=== PATIENT | male | born 1995 | race Caucasian/White ===

== ENCOUNTER 2017-04-16 15:14 | Inpatient (IN) | payer BC, MEDICAID ==
[2017-04-16] MEDS ORDERED: LORazepam 1 MG TAB PO STA (18:14)
[2017-04-16] MEDS ORDERED: LORazepam 2 MG/ML INJ IM STA (18:16)
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
[2017-04-16] MEDS ORDERED: ZIPRASIDONE 20 MG VIAL IM STA (19:07)
[2017-04-16] MEDS ORDERED: MAGNESIUM HYDROXIDE 2,400 MG/10 ML CUP PO PRN (21:31)
[2017-04-16] MEDS ORDERED: ACETAMINOPHEN TAB 325 MG TAB PO PRN (21:31)
[2017-04-16] MEDS ORDERED: MAG HYDROX/AL HYDROX/SIMETH 30 ML CUP PO PRN (21:31)
[2017-04-16] MEDS ORDERED: ZIPRASIDONE 20 MG VIAL IM PRN (21:31)
[2017-04-16] MEDS ORDERED: LORazepam 1 MG TAB PO PRN (21:31)
[2017-04-16] MEDS: levETIRAcetam 500 MG TAB PO SCH (22:14)
[2017-04-17] MEDS: levETIRAcetam 500 MG TAB PO SCH ×2 (09:34→20:10)
[2017-04-17 10:34] LABS: Basophils % (A) 1 %; Eosinophils # (A) 0.3 k/uL (0-0.7); Eosinophils % (A) 4 %; HCT 46.5 % (39.0-53.0); HGB 15.2 gm/dL (13.0-17.5); Lymphocytes % (A) 29 %; MCH 30.5 pg (25.0-35.0); MCHC 32.7 g/dL (31.0-37.0); MCV 93.5 fL (80.0-100.0); Mean Platelet Volume 7.8; Monocytes # (A) 0.4 k/uL (0-1.0); Monocytes % (A) 6 %; Neutrophils % (A) 59 %; Platelet Count 258 k/uL (150-450); RBC 4.97 m/uL (4.30-5.90); RDW 12.2 % (11.5-15.5); WBC 6.8 k/uL (4.0-11.0)
[2017-04-17 10:51] LABS: ALT 32 U/L (21-72); AST 33 U/L (17-59); Albumin 5.1 g/dL (3.5-5.0); Alkaline Phosphatase 60 U/L (38-126); Anion Gap 10 mmol/L; Blood Urea Nitrogen 13 mg/dL (9-20); Calcium 10.8 mg/dL (8.4-10.2); Carbon Dioxide 34 mmol/L (22-30); Chloride 96 mmol/L (98-107); Glucose 106 mg/dL (74-99); Potassium 4.9 mmol/L (3.5-5.1); Sodium 140 mmol/L (137-145); Total Bilirubin 0.9 mg/dL (0.2-1.3); Total Protein 8.1 g/dL (6.3-8.2)
--- NOTE | 2017-04-17 11:37 | CT ---
EXAMINATION TYPE: CT brain wo con DATE OF EXAM: 04/17/2017 COMPARISON: NONE HISTORY: Seizures with ICH CT DLP: 1039.30 mGycm Automated exposure control for dose reduction was used. FINDINGS: There is an area of encephalomalacia involving the right frontal region. This may BE due to previous vascular insult. Central structures are midline. There is no evidence of hydrocephalus. No acute focal lesion, mass ef fect or midline shift is seen. I do not see evidence of intracranial blood. Visualized portions of the paranasal sinuses and mastoids are clear. No depressed skull fracture is s een. IMPRESSION: 1. NO ACUTE INTRACRANIAL ABNORMALITY. 2. CATHETER OR MALACIA IN THE RIGHT FRONTAL LOBE IS INDICATIVE OF PREVIOUS INSULT, LIKELY VASCULAR.
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
[2017-04-17] MEDS ORDERED: OLANZapine 5 MG TAB PO STA (13:27)
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
[2017-04-17] MEDS: OLANZapine 5 MG TAB PO SCH ×2 (16:32→20:10)
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
[2017-04-17] MEDS: cloNIDine HCL 0.1 MG TAB PO SCH (20:10)
[2017-04-17 21:01] VITALS: BMI 17.8
[2017-04-18 02:13] VITALS: RESP 16
[2017-04-18] MEDS: levETIRAcetam 500 MG TAB PO SCH ×2 (09:05→20:43)
[2017-04-18] MEDS: cloNIDine HCL 0.1 MG TAB PO SCH ×2 (09:06→20:43)
[2017-04-18] MEDS: OLANZapine 5 MG TAB PO SCH ×2 (09:06→16:13)
[2017-04-18] MEDS: NICOTINE 21MG/24HR PATCH TRANSDERM SCH (09:08)
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
--- NOTE | 2017-04-18 18:48 | P.PN ---
Subjective Progress Note Date: 04/18/17 This patient is a 21-year-old male who was brought into the emergency room with symptoms of worsening anxiety and panic attacks. He has a history of having suffered a intracerebral hemorrhage several months ago. He was treated for this condition by neurosurgery at [facility]. He was placed on Keppra initially for 21 days. He weaned off the medication however he had a breakthrough seizure. He was placed back on Keppra 1000 mg twice a day. The patient was admitted through the emergency room yesterday. He was seen in neurology consultation. A computed tomography scan of the brain was ordered which revealed no acute intracranial abnormality. There was some encephalomalacia noted over the right frontal lobe indicating previous insult. No other abnormalities were noted. Patient today is doing quite well. We're waiting his Keppra blood level to return from the laboratory. He is to continue on current dose of Keppra thousand milligrams twice a day. EEG was ordered but was not completed today. We will continue to follow his progress closely during this admission. Objective - Vital Signs Vital signs: Vital Signs Temp 98.3 F 04/18/17 02:12 Pulse 140 H 04/18/17 09:00 Resp 16 04/18/17 09:00 BP 123/76 04/18/17 09:00 Pulse Ox 99 04/16/17 22:06 Intake & Output 04/17/17 04/18/17 04/18/17 18:59 06:59 18:59 Weight 52.3 kg 53.24 kg 53.24 kg - Exam Physical examination: PHYSICAL EXAMINATION: Patient is resting comfortably in bed. VITAL SIGNS: Blood pressure is [123/76]. Heart rate is [90]. Respiration is [16] . Temperature is [98.3]. HEENT: Head is atraumatic, neck is supple, there were no carotid bruits. CHEST: Lungs are clear to auscultation and percussion. CARDIAC: S1, S2 normal rate and rhythm. There is no murmur. ABDOMEN: Soft and nontender. Bowel sounds are present. EXTREMITIES: There is no pedal edema. Peripheral pulses are present. Neurological examination: Patient has a nonfocal neurological examination today. - Labs CBC & Chem 7: 04/17/17 10:06 04/17/17 10:06 Assessment and Plan (1) Seizure disorder Current Visit: Yes Status: Acute Code(s): G40.909 - EPILEPSY, UNSP, NOT INTRACTABLE, WITHOUT STATUS EPILEPTICUS SNOMED Code(s): 790159623 (2) History of intracerebral hemorrhage without residual deficit Current Visit: Yes Status: Acute Code(s): Z86.79 - PERSONAL HISTORY OF OTHER DISEASES OF THE CIRCULATORY SYSTEM SNOMED Code(s): 368473245 (3) Anxiety Current Visit: Yes Status: Acute Code(s): F41.9 - ANXIETY DISORDER, UNSPECIFIED SNOMED Code(s): 22890149 (4) Panic attacks Current Visit: Yes Status: Acute Code(s): F41.0 - PANIC DISORDER [EPISODIC PAROXYSMAL ANXIETY] SNOMED Code(s): 274588324 Plan: This patient is a 21-year-old male who is being followed in the inpatient psychiatric unit for history of seizure disorder and closed head injury. Patient is currently on Keppra thousand milligrams twice a day. He underwent a computed tomography scan of the brain yesterday results which are noted above. There is no evidence of any acute stroke or hemorrhage. Patient has a history of having suffered intracerebral hemorrhage several months ago. He has had several seizures following this. We are recommending he should be maintained on Keppra at this time. We will await the Keppra blood level to return from the laboratory and adjust his medication as needed. We are waiting for EEG to be performed for this patient and to be reviewed. We will continue to follow his progress closely during this admission. His overall prognosis at this time remains guarded.
[2017-04-18] MEDS: OLANZapine 2.5 MG TAB PO SCH (21:07)
[2017-04-19] MEDS: cloNIDine HCL 0.1 MG TAB PO SCH (09:08)
[2017-04-19] MEDS: levETIRAcetam 500 MG TAB PO SCH ×2 (09:08→20:08)
[2017-04-19] MEDS: NICOTINE 21MG/24HR PATCH TRANSDERM SCH (09:08)
[2017-04-19] MEDS: OLANZapine 2.5 MG TAB PO SCH (09:08)
--- NOTE | 2017-04-19 10:26 | P.PN ---
Progress Note - Text Interval history: The patient is found in his room he follows me to an interview room. He reports that he was able to sleep last night and appetite been stable. He states that he usually misses the morning groups as he is still sleeping. He reports attending the afternoon groups. He has been giving his placement options more thought and he wonders if he would be better staying with his grandmother versus his grandfather. We reviewed the Zyprexa he has no questions or concerns regarding that medication he is focused on having symptoms of anxiety still and feels that panic attacks will cause him to have seizures. Neurology is closely following the patient he has been getting serial Keppra levels that have been within the therapeutic range. The patient still disagrees with the necessity of this admission. He feels that his mother lied about information on the petition. Mental status exam: The patient is a thin male. He is pleasant and cooperative. He has a disheveled appearance. He frequently moves while seated and often adjusts his hair. He reports his mood is stable. He has not felt angry or irritable he reports. He is reporting no suicidal or homicidal ideation. Again he is motivated for discharge and may be minimizing symptoms. He is reporting no auditory or visual hallucinations or specific delusions. There is no observed evidence of psychosis. He demonstrates no verbal or physical aggressiveness he demonstrates no abnormal involuntary movements. Plan: The patient will continue on his current medications. We will discontinue the clonidine and offer Vistaril 25 mg up to twice daily for anxiety. He is requesting to go back on a benzodiazepine but given his history of substance use that does not appear to be in his best interest. We will monitor him for safety and encourage his full participation in the milieu. We will discuss his progress throughout the day during treatment team meeting.
[2017-04-19] MEDS: OLANZapine 5 MG TAB PO SCH ×2 (16:52→21:08)
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
[2017-04-19] MEDS: hydrOXYzine PAMOATE 25 MG CAP PO PRN (20:08)
[2017-04-20] MEDS: NICOTINE 21MG/24HR PATCH TRANSDERM SCH (08:39)
[2017-04-20] MEDS: OLANZapine 5 MG TAB PO SCH ×3 (08:39→21:10)
[2017-04-20] MEDS: levETIRAcetam 500 MG TAB PO SCH ×2 (08:40→20:16)
--- NOTE | 2017-04-20 11:32 | P.PN ---
Progress Note - Text Interval history: The patient is found in his room he follows me to an interview room. He reports his mood is stable. He does have a visit planned with his grandmother this evening. We will look forward to input from his grandmother after the visit. Staff reported the patient has been attending groups he is demonstrated no agitated behavior. He continues to find the Zyprexa helpful for mood symptoms. Mental status exam: The patient is alert he is pleasant and cooperative he has recently showered. He is dressed in his own clothing. He is reporting no suicidal or homicidal ideation intent or plan. He feels that he has been able to mitigate his irritable feelings and redirect those. Insight and judgment improving. He is endorsing no symptoms of psychosis there are no observable signs of psychosis. He demonstrates no verbal or physical aggressiveness. He and demonstrates no abnormal involuntary movements. Plan: The patient appears to be clinically stabilizing. We will continue his medications as written. We will evaluate him for another 24 hours and if he is appropriate we will discharge him tomorrow. We will await input from his grandmother after their visit this evening.
[2017-04-20 16:14] LABS: Appearance,Urine Clear (Clear); Bilirubin,Urine Negative (Negative); Blood,Urine Negative (Negative); Color,Urine Yellow; Glucose,Urine (UA) Negative (Negative); Ketones,Urine Negative (Negative); Leukocyte Esterase,Urine Negative (Negative); Nitrite,Urine Negative (Negative); Protein,Urine Negative (Negative); Specific Gravity,Urine 1.016 (1.001-1.035); Urobilinogen,Urine <2.0 mg/dL (<2.0)
[2017-04-20 16:27] LABS: Amphetamine Screen,Urine Not Detected (NotDetected); Barbiturate Screen,Urine Not Detected (NotDetected); Benzodiazepines Screen,Urine Not Detected (NotDetected); Cocaine Screen,Urine Not Detected (NotDetected); Methadone Screen, Urine Not Detected (NotDetected); Opiate Screen,Urine Not Detected (NotDetected); Oxycodone Screen, Urine Not Detected (NotDetected); Phencyclidine Screen,Urine Not Detected (NotDetected); Tricyclic Antidepressant,Urine Not Detected (NotDetected); Urn Cannabinoid Scrn Detected (NotDetected)
[2017-04-20] MEDS: hydrOXYzine PAMOATE 25 MG CAP PO PRN (20:18)
[2017-04-21 07:02] VITALS: BP 99/65; PULSE 58; TEMP 97.7
[2017-04-21] MEDS: levETIRAcetam 500 MG TAB PO SCH (07:51)
[2017-04-21] MEDS: NICOTINE 21MG/24HR PATCH TRANSDERM SCH (07:52)
[2017-04-21] MEDS: OLANZapine 5 MG TAB PO SCH (07:52)
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
== END 2017-04-21 10:54 | disposition home or self-care (01) | DRG 881 ==
LOC: EC 15:14 → 3MHU 20:36
PROVIDERS: ADMIT Psychiatry & Neurology Psychiatry; ATTEND Psychiatry & Neurology Psychiatry
DX: F32.9 Major depressive disorder, single episode, unspecified (principal); F11.20 Opioid dependence, uncomplicated; G93.89 Other specified disorders of brain; G40.409 Other generalized epilepsy and epileptic syndromes, not intractable, without status epilepticus; F31.9 Bipolar disorder, unspecified; F41.0 Panic disorder [episodic paroxysmal anxiety]; B19.20 Unspecified viral hepatitis C without hepatic coma; R45.1 Restlessness and agitation; F17.210 Nicotine dependence, cigarettes, uncomplicated; F12.10 Cannabis abuse, uncomplicated; Z79.899 Other long term (current) drug therapy; Z87.820 Personal history of traumatic brain injury; Z91.5 Personal history of self-harm
CPT/HCPCS: 70450; 80053; 80177; 80306; 81003; 82075; 84443; 85025; 95816; 96372; 99285

== ENCOUNTER 2017-07-30 05:54 | Emergency (ER) | payer BC, OTHER ==
--- NOTE | 2017-07-30 06:30 | ED ---
Lower Extremity Injury HPI - General Chief Complaint: Extremity Injury, Lower Stated Complaint: knee pain Time Seen by Provider: 07/30/17 06:24 Source: patient Mode of arrival: ambulatory Limitations: no limitations - History of Present Illness Initial Comments: 21 years old male complains about left kidney pain, he said he has this pain for a long time and is getting worse he denies any fall or any trauma any car accident or any sporting injury. Review of system is unremarkable otherwise - Related Data Home Medications Medication Instructions Recorded Confirmed levETIRAcetam [Keppra] 1,000 mg PO Q12HR 04/16/17 04/16/17 Previous Rx's Medication Instructions Recorded Nicotine 21Mg/24Hr Patch [Habitrol] 1 patch TRANSDERM DAILY #12 patch 04/21/17 OLANZapine [ZyPREXA] 5 mg PO TID #90 tab 04/21/17 hydrOXYzine PAMOATE [Vistaril] 25 mg PO BID PRN #40 cap 04/21/17 Allergies Allergy/AdvReac Type Severity Reaction Status Date / Time No Known Allergies Allergy Verified 07/30/17 06:15 Review of Systems ROS Statement: Those systems with pertinent positive or pertinent negative responses have been documented in the HPI. ROS Other: All systems not noted in ROS Statement are negative. Past Medical History Past Medical History: Seizure Disorder Additional Past Medical History / Comment(s): Hepatitis C-- Dx five years ago. 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 Seizure - last was 04/16/17. History of Any Multi-Drug Resistant Organisms: None Reported Past Surgical History: Orthopedic Surgery, Tonsillectomy Additional Past Surgical History / Comment(s): Patient had right side jaw repair with a plate. Left arm repair due to a compound fracture in Past Anesthesia/Blood Transfusion Reactions: No Reported Reaction Past Psychological History: Anxiety, Bipolar, Depression Smoking Status: Current every day smoker Past Alcohol Use History: None Reported, Daily Past Drug Use History: Heroin - Past Family History Father Family Medical History: No Reported History Mother Additional Family Medical History / Comment(s): Depression, Bipolar, ADD/ADHD Sister(s) Family Medical History: No Reported History Brother(s) Family Medical History: No Reported History General Exam - General Exam Comments Initial Comments: General: The patient is awake and alert, in no distress, and does not appear acutely ill. Skin: Skin is warm and dry and no rashes or lesions are noted. Eye: Pupils are equal, round and reactive to light, extra-ocular movements are intact; there is normal conjunctiva bilaterally. Ears, nose, mouth and throat: There are moist mucous membranes and no oral lesions. Neck: The neck is supple, there is no tenderness or JVD. Cardiovascular: There is a regular rate and rhythm. No murmur, rub or gallop is appreciated. Respiratory: To auscultation bilateral, no wheezing no rhonchi no distress respiratory brand noticed Gastrointestinal: Soft, non-distended, non-tender abdomen without masses or organomegaly noted. There is no rebound or guarding present. Bowel sounds are unremarkable. Back: There is no tenderness to palpation in the midline. There is no obvious deformity. Musculoskeletal: Normal ROM, mildly tender over the face left kidney joint welling noticed, no erythema noticed no effusion noticed range of motion is fine no neurovascular compromise noticed of the left distal lower extremity Neurological: CN II-XII intact, Cranial nerves III through XII are intact. There are no obvious motor or sensory deficits. Coordination appears grossly intact. Speech is normal. Psychiatric: Cooperative, appropriate mood & affect, normal judgment. Limitations: no limitations Course Vital Signs 07/30/17 06:10 Temperature 97.6 F Pulse Rate 97 Respiratory 20 Rate Blood Pressure 112/81 O2 Sat by Pulse 98 Oximetry Disposition Clinical Impression: Knee sprain Disposition: HOME SELF-CARE Instructions: Knee Sprain (ED) Additional Instructions: Tylenol or Motrin as needed, x-ray reviewed no obvious fracture noticed patient is advised follow-up with Dr. Quevedo or return to ER if symptoms get worse Is patient prescribed a controlled substance at d/c from ED?: No If prescribed controlled substance>3 days was MAPS reviewed?: No When asked, does pt state using other controlled substances?: No Referrals: Chiqui Quevedo MD [Primary Care Provider] - 1-2 days
--- NOTE | 2017-07-30 07:23 | XR ---
EXAMINATION TYPE: XR knee 4V LT , 5 VIEWS DATE OF EXAM ORDERED: 07/30/2017 HISTORY: Pain. COMPARISON: None. FINDINGS: No fracture, dislocation or knee joint effusion is seen. IMPRESSION: NO ACUTE OSSEOUS LESION.
[2017-07-30 07:28] VITALS: RESP 18
[2017-07-30 11:02] VITALS: BP 104/62; PULSE 101; TEMP 97.1
== END 2017-07-30 10:58 | disposition home or self-care (01) ==
LOC: EC 05:54
DX: S83.92XA Sprain of unspecified site of left knee, initial encounter (principal); G40.909 Epilepsy, unspecified, not intractable, without status epilepticus; F17.200 Nicotine dependence, unspecified, uncomplicated; Z79.899 Other long term (current) drug therapy; X58.XXXA Exposure to other specified factors, initial encounter
CPT/HCPCS: 99283

== ENCOUNTER 2017-11-05 05:32 | Emergency (ER) | payer BC, MEDICAID, OTHER ==
[2017-11-05] MEDS ORDERED: SODIUM CHLORIDE 0.9% 500 ML IV STA (06:07)
[2017-11-05 06:22] LABS: Basophils % (A) 0 %; Eosinophils # (A) 0.1 k/uL (0-0.7); Eosinophils % (A) 2 %; HCT 36.4 % (39.0-53.0); HGB 11.9 gm/dL (13.0-17.5); Lymphocytes # (A) 1.6 k/uL (1.0-4.8); Lymphocytes % (A) 27 %; MCH 29.9 pg (25.0-35.0); MCHC 32.7 g/dL (31.0-37.0); MCV 91.4 fL (80.0-100.0); Mean Platelet Volume 7.8; Monocytes # (A) 0.3 k/uL (0-1.0); Monocytes % (A) 6 %; Neutrophils # (A) 3.9 k/uL (1.3-7.7); Neutrophils % (A) 64 %; Platelet Count 150 k/uL (150-450); RBC 3.98 m/uL (4.30-5.90); RDW 12.7 % (11.5-15.5)
[2017-11-05 06:33] LABS: ALT 27 U/L (21-72); AST 43 U/L (17-59); Acetaminophen <10.0 ug/mL; Albumin 4.1 g/dL (3.5-5.0); Alcohol <10 mg/dL; Alkaline Phosphatase 47 U/L (38-126); Anion Gap 8 mmol/L; Blood Urea Nitrogen 15 mg/dL (9-20); Calcium 9.3 mg/dL (8.4-10.2); Carbon Dioxide 28 mmol/L (22-30); Chloride 102 mmol/L (98-107); Glucose 138 mg/dL (74-99); Potassium 4.1 mmol/L (3.5-5.1); Salicylate <1.0 mg/dL; Sodium 138 mmol/L (137-145); Total Bilirubin 0.4 mg/dL (0.2-1.3); Total Protein 6.3 g/dL (6.3-8.2)
--- NOTE | 2017-11-05 06:40 | ED ---
Overdose HPI - General Chief Complaint: Overdose Stated Complaint: Overdose Time Seen by Provider: 11/05/17 05:38 Source: patient, EMS Mode of arrival: EMS Limitations: no limitations - History of Present Illness Initial Comments: Patient is 21-year-old man brought in after he had a seizure or possible heroin overdose. Patient does admit to history of seizures, taking Keppra. EMS was called to the scene of heroin overdose and was reported that the patient had a shaking episode. When I interview the patient, he states he is at his baseline area he denies any complaints. He states that his last seizure had been a few weeks ago. He states he may have missed doses of his medication. Complaint: accidental overdose Onset/Timin -: hour(s) Context: Accidental Overdose: wanted to get high - Related Data Home Medications Medication Instructions Recorded Confirmed levETIRAcetam [Keppra] 1,000 mg PO Q12HR 04/16/17 04/16/17 Previous Rx's Medication Instructions Recorded Nicotine 21Mg/24Hr Patch [Habitrol] 1 patch TRANSDERM DAILY #12 patch 04/21/17 OLANZapine [ZyPREXA] 5 mg PO TID #90 tab 04/21/17 hydrOXYzine PAMOATE [Vistaril] 25 mg PO BID PRN #40 cap 04/21/17 Allergies Allergy/AdvReac Type Severity Reaction Status Date / Time No Known Allergies Allergy Verified 07/30/17 06:15 Review of Systems ROS Statement: Those systems with pertinent positive or pertinent negative responses have been documented in the HPI. ROS Other: All systems not noted in ROS Statement are negative. Constitutional: Denies: fever, chills Respiratory: Denies: cough, dyspnea Cardiovascular: Denies: chest pain, palpitations Gastrointestinal: Denies: abdominal pain, vomiting, diarrhea Genitourinary: Denies: dysuria Musculoskeletal: Denies: back pain Skin: Denies: rash Neurological: Denies: headache, weakness, numbness Past Medical History Past Medical History: Seizure Disorder Additional Past Medical History / Comment(s): Hepatitis C-- Dx five years ago. 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 Seizure - last was 04/16/17. History of Any Multi-Drug Resistant Organisms: None Reported Past Surgical History: Orthopedic Surgery, Tonsillectomy Additional Past Surgical History / Comment(s): Patient had right side jaw repair with a plate. Left arm repair due to a compound fracture in Past Anesthesia/Blood Transfusion Reactions: No Reported Reaction Past Psychological History: Anxiety, Bipolar, Depression Smoking Status: Current every day smoker Past Alcohol Use History: Occasional Past Drug Use History: Heroin, Marijuana - Past Family History Father Family Medical History: No Reported History Mother Additional Family Medical History / Comment(s): Depression, Bipolar, ADD/ADHD Sister(s) Family Medical History: No Reported History Brother(s) Family Medical History: No Reported History General Exam Limitations: no limitations General appearance: alert, in no apparent distress Head exam: Present: atraumatic, normocephalic Eye exam: Present: normal appearance, PERRL, EOMI. Absent: scleral icterus, conjunctival injection, nystagmus ENT exam: Present: normal oropharynx Respiratory exam: Present: normal lung sounds bilaterally. Absent: respiratory distress, wheezes, rales, rhonchi, stridor Cardiovascular Exam: Present: regular rate, normal rhythm, normal heart sounds. Absent: systolic murmur, diastolic murmur, rubs, gallop GI/Abdominal exam: Present: soft. Absent: distended, tenderness, guarding Extremities exam: Present: normal inspection, normal capillary refill. Absent: pedal edema, calf tenderness Neurological exam: Present: alert, oriented X3, CN II-XII intact. Absent: motor sensory deficit Psychiatric exam: Absent: homicidal ideation, suicidal ideation Skin exam: Present: warm, dry, intact, normal color. Absent: rash Course Vital Signs 11/05/17 11/05/17 11/05/17 05:32 06:30 06:58 Temperature 98.7 F Pulse Rate 96 88 84 Respiratory 15 16 17 Rate Blood Pressure 129/67 122/63 114/70 O2 Sat by Pulse 96 99 98 Oximetry 11/05/17 11/05/17 11/05/17 07:22 08:44 09:41 Temperature 98.7 F Pulse Rate 78 69 64 Respiratory 15 15 16 Rate Blood Pressure 112/59 110/59 109/61 O2 Sat by Pulse 97 95 97 Oximetry 11/05/17 10:34 Temperature 97.8 F Pulse Rate 89 Respiratory 16 Rate Blood Pressure 118/70 O2 Sat by Pulse 99 Oximetry Medical Decision Making - Lab Data Result diagrams: 11/05/17 05:40 11/05/17 05:40 Lab Results 11/05/17 11/05/17 11/05/17 Range/Units 05:40 05:40 05:40 WBC 6.0 (4.0-11.0) k/uL RBC 3.98 L (4.30-5.90) m/uL Hgb 11.9 L (13.0-17.5) gm/dL Hct 36.4 L (39.0-53.0) % MCV 91.4 (80.0-100.0) fL MCH 29.9 (25.0-35.0) pg MCHC 32.7 (31.0-37.0) g/dL RDW 12.7 (11.5-15.5) % Plt Count 150 (150-450) k/uL Neutrophils % 64 % Lymphocytes % 27 % Monocytes % 6 % Eosinophils % 2 % Basophils % 0 % Neutrophils # 3.9 (1.3-7.7) k/uL Lymphocytes # 1.6 (1.0-4.8) k/uL Monocytes # 0.3 (0-1.0) k/uL Eosinophils # 0.1 (0-0.7) k/uL Basophils # 0.0 (0-0.2) k/uL Sodium 138 (137-145) mmol/L Potassium 4.1 (3.5-5.1) mmol/L Chloride 102 (98-107) mmol/L Carbon Dioxide 28 (22-30) mmol/L Anion Gap 8 mmol/L BUN 15 (9-20) mg/dL Creatinine 1.05 (0.66-1.25) mg/dL Est GFR (CKD-EPI)AfAm >90 (>60 ml/min/1.73 sqM) Est GFR (CKD-EPI)NonAf >90 (>60 ml/min/1.73 sqM) Glucose 138 H (74-99) mg/dL Calcium 9.3 (8.4-10.2) mg/dL Total Bilirubin 0.4 (0.2-1.3) mg/dL AST 43 (17-59) U/L ALT 27 (21-72) U/L Alkaline Phosphatase 47 (38-126) U/L Total Protein 6.3 (6.3-8.2) g/dL Albumin 4.1 (3.5-5.0) g/dL Salicylates <1.0 mg/dL Urine Opiates Screen (NotDetected) Ur Oxycodone Screen (NotDetected) Urine Methadone Screen (NotDetected) Ur Propoxyphene Screen (NotDetected) Acetaminophen <10.0 ug/mL Ur Barbiturates Screen (NotDetected) U Tricyclic Antidepress (NotDetected) Levetiracetam 28.6 (3.0-60.0) ug/mL Ur Phencyclidine Scrn (NotDetected) Ur Amphetamines Screen (NotDetected) U Methamphetamines Scrn (NotDetected) U Benzodiazepines Scrn (NotDetected) Urine Cocaine Screen (NotDetected) U Marijuana (THC) Screen (NotDetected) Serum Alcohol <10 mg/dL 11/05/17 Range/Units 07:03 WBC (4.0-11.0) k/uL RBC (4.30-5.90) m/uL Hgb (13.0-17.5) gm/dL Hct (39.0-53.0) % MCV (80.0-100.0) fL MCH (25.0-35.0) pg MCHC (31.0-37.0) g/dL RDW (11.5-15.5) % Plt Count (150-450) k/uL Neutrophils % % Lymphocytes % % Monocytes % % Eosinophils % % Basophils % % Neutrophils # (1.3-7.7) k/uL Lymphocytes # (1.0-4.8) k/uL Monocytes # (0-1.0) k/uL Eosinophils # (0-0.7) k/uL Basophils # (0-0.2) k/uL Sodium (137-145) mmol/L Potassium (3.5-5.1) mmol/L Chloride (98-107) mmol/L Carbon Dioxide (22-30) mmol/L Anion Gap mmol/L BUN (9-20) mg/dL Creatinine (0.66-1.25) mg/dL Est GFR (CKD-EPI)AfAm (>60 ml/min/1.73 sqM) Est GFR (CKD-EPI)NonAf (>60 ml/min/1.73 sqM) Glucose (74-99) mg/dL Calcium (8.4-10.2) mg/dL Total Bilirubin (0.2-1.3) mg/dL AST (17-59) U/L ALT (21-72) U/L Alkaline Phosphatase (38-126) U/L Total Protein (6.3-8.2) g/dL Albumin (3.5-5.0) g/dL Salicylates mg/dL Urine Opiates Screen Not Detected (NotDetected) Ur Oxycodone Screen Not Detected (NotDetected) Urine Methadone Screen Not Detected (NotDetected) Ur Propoxyphene Screen Not Detected (NotDetected) Acetaminophen ug/mL Ur Barbiturates Screen Not Detected (NotDetected) U Tricyclic Antidepress Not Detected (NotDetected) Levetiracetam (3.0-60.0) ug/mL Ur Phencyclidine Scrn Not Detected (NotDetected) Ur Amphetamines Screen Not Detected (NotDetected) U Methamphetamines Scrn Not Detected (NotDetected) U Benzodiazepines Scrn Detected H (NotDetected) Urine Cocaine Screen Detected H (NotDetected) U Marijuana (THC) Screen Detected H (NotDetected) Serum Alcohol mg/dL - EKG Data -: EKG Interpreted by [facility] EKG shows normal: sinus rhythm, axis (Rightward axis), intervals (Normal), QRS complexes (Normal), ST-T waves (Normal) Rate: normal (Rate 99 bpm) Disposition Clinical Impression: Drug overdose Disposition: HOME SELF-CARE Condition: Good Instructions: Opioid Overdose (ED) Is patient prescribed a controlled substance at d/c from ED?: No Referrals: None,Stated [Primary Care Provider] - 1-2 days
[2017-11-05 07:40] LABS: Amphetamine Screen,Urine Not Detected (NotDetected); Barbiturate Screen,Urine Not Detected (NotDetected); Benzodiazepines Screen,Urine Detected (NotDetected); Cocaine Screen,Urine Detected (NotDetected); Methadone Screen, Urine Not Detected (NotDetected); Opiate Screen,Urine Not Detected (NotDetected); Oxycodone Screen, Urine Not Detected (NotDetected); Phencyclidine Screen,Urine Not Detected (NotDetected); Tricyclic Antidepressant,Urine Not Detected (NotDetected); Urn Cannabinoid Scrn Detected (NotDetected)
[2017-11-05 09:42] VITALS: RESP 16
[2017-11-05 10:35] VITALS: BP 118/70; PULSE 89; TEMP 97.8
== END 2017-11-05 10:47 | disposition home or self-care (01) ==
LOC: EC 05:32
DX: T40.1X1A Poisoning by heroin, accidental (unintentional), initial encounter (principal); G40.909 Epilepsy, unspecified, not intractable, without status epilepticus; Z98.890 Other specified postprocedural states; Z79.899 Other long term (current) drug therapy
CPT/HCPCS: 36415; 80053; 80177; 80306; 80320; 83520; 85025; 93005; 99284

== ENCOUNTER 2018-10-25 14:10 | Emergency (ER) | payer BC, MEDICAID, OTHER ==
[2018-10-25 14:26] VITALS: BP 131/83; TEMP 98.4
--- NOTE | 2018-10-25 15:05 | ED ---
General Adult HPI - General Chief complaint: Recheck/Abnormal Lab/Rx Stated complaint: out of seizure meds Time Seen by Provider: 10/25/18 14:29 Source: patient, RN notes reviewed Mode of arrival: ambulatory Limitations: no limitations - History of Present Illness Initial comments: This a 22-year-old male presents emergency Department with chief complaint of needing medications. Patient states he has a seizure disorder. Patient states that he is in the process scheduled appointment though he just got out of pain incarcerated. Patient states he takes L 1000 mg twice daily. He's had no recent seizures. Patient does have a plan for follow-up. Patient denies any other complaints at this time - Related Data Home Medications Medication Instructions Recorded Confirmed levETIRAcetam [Keppra] 1,000 mg PO Q12HR 04/16/17 04/16/17 Previous Rx's Medication Instructions Recorded Nicotine 21Mg/24Hr Patch [Habitrol] 1 patch TRANSDERM DAILY #12 patch 04/21/17 OLANZapine [ZyPREXA] 5 mg PO TID #90 tab 04/21/17 hydrOXYzine PAMOATE [Vistaril] 25 mg PO BID PRN #40 cap 04/21/17 levETIRAcetam [Keppra] 1,000 mg PO Q12HR #60 tab 10/25/18 Allergies Allergy/AdvReac Type Severity Reaction Status Date / Time No Known Allergies Allergy Verified 10/25/18 14:26 Review of Systems ROS Statement: Those systems with pertinent positive or pertinent negative responses have been documented in the HPI. ROS Other: All systems not noted in ROS Statement are negative. Past Medical History Past Medical History: Seizure Disorder Additional Past Medical History / Comment(s): Hepatitis C-- Dx five years ago. 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 Seizure - last was 04/16/17. History of Any Multi-Drug Resistant Organisms: None Reported Past Surgical History: Orthopedic Surgery, Tonsillectomy Additional Past Surgical History / Comment(s): Patient had right side jaw repair with a plate. Left arm repair due to a compound fracture in Past Anesthesia/Blood Transfusion Reactions: No Reported Reaction Past Psychological History: Anxiety, Depression Smoking Status: Current every day smoker Past Alcohol Use History: Occasional Past Drug Use History: Marijuana - Past Family History Father Family Medical History: No Reported History Mother Additional Family Medical History / Comment(s): Depression, Bipolar, ADD/ADHD Sister(s) Family Medical History: No Reported History Brother(s) Family Medical History: No Reported History General Exam Limitations: no limitations General appearance: alert, in no apparent distress Head exam: Present: atraumatic, normocephalic, normal inspection Eye exam: Present: normal appearance, PERRL, EOMI. Absent: scleral icterus, conjunctival injection, periorbital swelling ENT exam: Present: normal exam, mucous membranes moist Neck exam: Present: normal inspection, full ROM. Absent: tenderness, meningismus, lymphadenopathy Respiratory exam: Present: normal lung sounds bilaterally. Absent: respiratory distress, wheezes, rales, rhonchi, stridor Cardiovascular Exam: Present: regular rate, normal rhythm, normal heart sounds. Absent: systolic murmur, diastolic murmur, rubs, gallop, clicks Neurological exam: Present: alert, oriented X3, CN II-XII intact Skin exam: Present: warm, dry, intact, normal color. Absent: rash Course Vital Signs 10/25/18 14:20 Temperature 98.4 F Pulse Rate 118 H Respiratory 16 Rate Blood Pressure 131/83 O2 Sat by Pulse 96 Oximetry Medical Decision Making - Medical Decision Making 22-year-old male presented for medication refill. Patient will be given prescription for Keppra. Patient will follow-up with PCP return for any worsening symptoms. Disposition Clinical Impression: Seizure disorder, Encounter for medication refill Disposition: HOME SELF-CARE Condition: Stable Instructions (If sedation given, give patient instructions): Generalized Tonic Clonic Seizures (ED) Additional Instructions: Please return to the Emergency Department if symptoms worsen or any other concerns. Prescriptions: levETIRAcetam [Keppra] 1,000 mg PO Q12HR #60 tab Is patient prescribed a controlled substance at d/c from ED?: No Referrals: None,Stated [Primary Care Provider] - 1-2 days Time of Disposition: 15:05
[2018-10-25 15:08] VITALS: PULSE 88; RESP 18
== END 2018-10-25 15:08 | disposition home or self-care (01) ==
LOC: EC 14:10
DX: G40.909 Epilepsy, unspecified, not intractable, without status epilepticus (principal); Z76.0 Encounter for issue of repeat prescription; F17.200 Nicotine dependence, unspecified, uncomplicated; Z87.820 Personal history of traumatic brain injury; Z98.890 Other specified postprocedural states; Z79.899 Other long term (current) drug therapy
CPT/HCPCS: 99281

== ENCOUNTER 2019-01-11 00:39 | Emergency (ER) | payer OTHER ==
[2019-01-11 00:46] VITALS: BP 135/85; PULSE 72; RESP 18; TEMP 97.6
[2019-01-11] MEDS ORDERED: SULFAMETH-TMP DS STARTER PACK 2 TAB BTL PO STA (01:25)
--- NOTE | 2019-01-11 01:25 | ED ---
Upper Extremity HPI - General Chief Complaint: Extremity Injury, Upper Stated Complaint: post op complications Time Seen by Provider: 01/11/19 00:56 Source: patient, family, RN notes reviewed, old records reviewed Mode of arrival: ambulatory Limitations: no limitations - History of Present Illness Initial Comments: Patient's 23-year-old male presents today for evaluation for concerns for pain from a right forearm drained. Patient reports that he is supposed to have the drain removed a week ago by a surgeon. He had this replaced due to an abscess. Patient reports that he had emesis appointment he does have an appointment in 2 days to have the drain removed by a surgeon on Tuesday. Patient states his concerns have some increased tightness and pain on the forearm. He denies any other significant complaints. Patient had a surgeon Lien Keys performed this incision and drainage. - Related Data Home Medications Medication Instructions Recorded Confirmed levETIRAcetam [Keppra] 1,000 mg PO Q12HR 04/16/17 04/16/17 Previous Rx's Medication Instructions Recorded Nicotine 21Mg/24Hr Patch [Habitrol] 1 patch TRANSDERM DAILY #12 patch 04/21/17 OLANZapine [ZyPREXA] 5 mg PO TID #90 tab 04/21/17 hydrOXYzine PAMOATE [Vistaril] 25 mg PO BID PRN #40 cap 04/21/17 levETIRAcetam [Keppra] 1,000 mg PO Q12HR #60 tab 10/25/18 Sulfamethox-Tmp 800-160Mg [Bactrim 1 tab PO Q12HR #10 tab 01/11/19 DS 800-160 mg] Allergies Allergy/AdvReac Type Severity Reaction Status Date / Time No Known Allergies Allergy Verified 01/11/19 00:47 Review of Systems ROS Statement: Those systems with pertinent positive or pertinent negative responses have been documented in the HPI. ROS Other: All systems not noted in ROS Statement are negative. Past Medical History Past Medical History: Seizure Disorder Additional Past Medical History / Comment(s): Hepatitis C-- Dx five years ago. 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 Seizure - last was 04/16/17. History of Any Multi-Drug Resistant Organisms: None Reported Past Surgical History: Orthopedic Surgery, Tonsillectomy Additional Past Surgical History / Comment(s): Patient had right side jaw repair with a plate. Left arm repair due to a compound fracture in Past Anesthesia/Blood Transfusion Reactions: No Reported Reaction Past Psychological History: Anxiety, Depression Smoking Status: Current every day smoker Past Alcohol Use History: Occasional Past Drug Use History: Marijuana - Past Family History Father Family Medical History: No Reported History Mother Additional Family Medical History / Comment(s): Depression, Bipolar, ADD/ADHD Sister(s) Family Medical History: No Reported History Brother(s) Family Medical History: No Reported History General Exam - General Exam Comments Initial Comments: 21-year-old male. Active. Patient is no distress. Limitations: no limitations General appearance: alert, in no apparent distress Head exam: Present: atraumatic, normocephalic, normal inspection Eye exam: Present: normal appearance, PERRL, EOMI. Absent: scleral icterus, conjunctival injection, periorbital swelling ENT exam: Present: normal exam, mucous membranes moist Neck exam: Present: normal inspection. Absent: tenderness, meningismus, lymphadenopathy Respiratory exam: Present: normal lung sounds bilaterally. Absent: respiratory distress, wheezes, rales, rhonchi, stridor Cardiovascular Exam: Present: regular rate, normal rhythm, normal heart sounds. Absent: systolic murmur, diastolic murmur, rubs, gallop, clicks GI/Abdominal exam: Present: soft Extremities exam: Present: normal inspection, full ROM, normal capillary refill, other (Loop drain in the right anterior forearm. Some minimal purulent drainage around the entrance of the drain site. Some minimal erythema noted as well. Patient has full range of motion of the arm. Patient has normal sensation and normal capillary refill.). Absent: tenderness, pedal edema, joint swelling, calf tenderness Course Vital Signs 01/11/19 00:40 Temperature 97.6 F Pulse Rate 72 Respiratory 18 Rate Blood Pressure 135/85 O2 Sat by Pulse 98 Oximetry Medical Decision Making - Medical Decision Making 23-year-old male presents for concerns for irritation around the left forearm drain site. Patient had a Loop drained and for 2 weeks and is to have this removed a week ago. Patient reports that he sees a surgeon 2 days from now. I discussed with the drainage for the Patient on antibiotics. Patient has a soft compartment, normal sensation and capillary refill. Patient has been advised that he says he is discharged to have the drain removed. All questions were answered and return parameters were discussed. Disposition Clinical Impression: Wound drainage Disposition: HOME SELF-CARE Condition: Good Instructions (If sedation given, give patient instructions): Wound Infection (ED) Additional Instructions: Please use medication as discussed. Please follow up with family doctor if symptoms have not improved over the next two days. Please return to the emergency room if your symptoms increase or worsen or for any other concerns. Follow-up with your surgeon on Tuesday to have the drain properly removed. Keep the area clean and dry. Start taking the antibiotics again. Prescriptions: Sulfamethox-Tmp 800-160Mg [Bactrim DS 800-160 mg] 1 tab PO Q12HR #10 tab Is patient prescribed a controlled substance at d/c from ED?: No Referrals: None,Stated [Primary Care Provider] - 1-2 days Time of Disposition: 01:25
== END 2019-01-11 01:41 | disposition home or self-care (01) ==
LOC: EC 00:39
DX: T81.89XA Other complications of procedures, not elsewhere classified, initial encounter (principal); G40.909 Epilepsy, unspecified, not intractable, without status epilepticus; F17.200 Nicotine dependence, unspecified, uncomplicated; Z79.899 Other long term (current) drug therapy
CPT/HCPCS: 99283

== ENCOUNTER 2019-01-13 20:31 | Emergency (ER) | payer OTHER ==
--- NOTE | 2019-01-13 21:29 | ED ---
General Adult HPI - General Chief complaint: Extremity Problem,Nontraumatic Stated complaint: Arm pain Time Seen by Provider: 01/13/19 20:44 Source: patient, RN notes reviewed, old records reviewed Mode of arrival: ambulatory Limitations: no limitations - History of Present Illness Initial comments: 23-year-old male patient presents the for chief complaint of pain in right forearm region. Patient reports that approximately 3 weeks ago he had a surgery on his right forearm region due to a abscess. Patient reports that he had 2 drains placed. Patient states that he is supposed to have these drains removed by the surgeon on Tuesday however he is not able to make the appointment. Patient currently has pain. Patient denies any fevers chills. Denies any nausea vomiting or diarrhea. Denies any other complaints at this time. Systemic: Pt denies fatigue, fever/chills, rash. Pt denies weakness, night sweats, weight loss. Neuro: Pt denies headache, visual disturbances, syncope or pre-syncope. HEENT: Pt denies ocular discharge or irritation, otalgia, rhinorrhea, pharyngitis or notable lymphadenopathy. Cardiopulmonary: Pt denies chest pain, SOB, heart palpitations, dyspnea on exertion. Abdominal/GI: Pt denies abdominal pain, n/v/d. : Pt denies dysuria, burning w/ urination, frequency/urgency. Denies new onset urinary or bowel incontinence. MSK: Pt denies myalgia, loss of strength or function in extremities. Neuro: Pt denies new onset weakness, paresthesias. - Related Data Home Medications Medication Instructions Recorded Confirmed levETIRAcetam [Keppra] 1,000 mg PO Q12HR 04/16/17 04/16/17 Previous Rx's Medication Instructions Recorded Nicotine 21Mg/24Hr Patch [Habitrol] 1 patch TRANSDERM DAILY #12 patch 04/21/17 OLANZapine [ZyPREXA] 5 mg PO TID #90 tab 04/21/17 hydrOXYzine PAMOATE [Vistaril] 25 mg PO BID PRN #40 cap 04/21/17 levETIRAcetam [Keppra] 1,000 mg PO Q12HR #60 tab 10/25/18 Sulfamethox-Tmp 800-160Mg [Bactrim 1 tab PO Q12HR #10 tab 01/11/19 DS 800-160 mg] Allergies Allergy/AdvReac Type Severity Reaction Status Date / Time No Known Allergies Allergy Verified 01/13/19 20:43 Review of Systems ROS Statement: Those systems with pertinent positive or pertinent negative responses have been documented in the HPI. ROS Other: All systems not noted in ROS Statement are negative. Past Medical History Past Medical History: Seizure Disorder Additional Past Medical History / Comment(s): Hepatitis C-- Dx five years ago. 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 Seizure - last was 04/16/17. History of Any Multi-Drug Resistant Organisms: None Reported Past Surgical History: Orthopedic Surgery, Tonsillectomy Additional Past Surgical History / Comment(s): Patient had right side jaw repair with a plate. Left arm repair due to a compound fracture in Past Anesthesia/Blood Transfusion Reactions: No Reported Reaction Past Psychological History: Anxiety, Depression Smoking Status: Current every day smoker Past Alcohol Use History: Occasional Past Drug Use History: Marijuana - Past Family History Father Family Medical History: No Reported History Mother Additional Family Medical History / Comment(s): Depression, Bipolar, ADD/ADHD Sister(s) Family Medical History: No Reported History Brother(s) Family Medical History: No Reported History General Exam - General Exam Comments Initial Comments: Constitutional: NAD, AOX3, Pt has pleasant affect. HEENT: NC/AT, trachea midline, neck supple, no lymphadenopathy. Posterior pharynx non erythematous, without exudates. External ears appear normal, without discharge. Mucous membranes moist. Eyes PERRLA, EOM intact. There is no scleral icterus. No pallor noted. Cardiopulmonary: RRR, no murmurs, rubs or gallops, no JVD noted. Lungs CTAB in anterior and posterior patel. No peripheral edema. Abdominal exam: Abdomen soft and non-distended. Abdomen non-tender to palpation in all 4 quadrants. Bowel sounds active in LLQ. No hepatosplenomegaly. No ecchymosis Neuro: CN II-XII grossly intact. No nuchal rigidity. No raccon eyes, no pelayo sign, no hemotympanum. No cervical spinal tenderness. MSK: 2 drains noted in right forearm region. Nonerythematous, nonfluctuant, no skin changes. compartments soft. Neurovascularly intact. No posterior calf tenderness bilaterally, homans sign negative bilaterally. Posterior tibialis and radial pulse +2 bilaterally. Sensation intact in upper and lower extremities. Full active ROM in upper and lower extremities, 5/5 stregnth. Limitations: no limitations Course Vital Signs 01/13/19 20:40 Temperature 97.4 F L Pulse Rate 72 Respiratory 18 Rate Blood Pressure 112/67 O2 Sat by Pulse 100 Oximetry Medical Decision Making - Medical Decision Making 24-year-old male patient presents to ED for chief complaint of pain from draining to the right forearm region. Patient did denies any systemic signs of infection. Patient was supposed to have the drains removed on Tuesday by the surgeon based out of [facility]. However patient was not able to find a ride reportedly. Chart review from previous visit 2 days ago reveals that patient was supposed to have this drain removed over a week ago now reportedly. Physical exam did not display any signs suggestive of infection. Skin changes, no fluctuance, compartment soft neurovascular intact. Patient advised to continue Bactrim. Patient will be discharged will be instructed to follow up with surgeon on tuesday. Will return to ER if condition worsens. Case discussed with Dr. Thorne. Disposition Clinical Impression: Visit for wound check Disposition: HOME SELF-CARE Condition: Stable Additional Instructions: Follow-up with surgeon on Tuesday. Continue to take medications as directed. Return to ER if condition worsens in anyway. Is patient prescribed a controlled substance at d/c from ED?: No Referrals: None,Stated [Primary Care Provider] - 1-2 days
[2019-01-13 21:41] VITALS: BP 114/68; PULSE 68; RESP 17; TEMP 98.6
== END 2019-01-13 21:41 | disposition home or self-care (01) ==
LOC: EC 20:31
DX: M79.631 Pain in right forearm (principal); G40.909 Epilepsy, unspecified, not intractable, without status epilepticus; F17.200 Nicotine dependence, unspecified, uncomplicated; Z98.890 Other specified postprocedural states; Z79.899 Other long term (current) drug therapy
CPT/HCPCS: 99283

== ENCOUNTER 2019-01-20 18:25 | Emergency (ER) | payer BC, OTHER ==
--- NOTE | 2019-01-20 18:47 | ED ---
Recheck HPI - General Chief Complaint: Recheck/Abnormal Lab/Rx Stated Complaint: RT ARM DRAINAGE TUBE - NEEDS TO BE REMOVED Time Seen by Provider: 01/20/19 18:45 Source: patient Mode of arrival: ambulatory Limitations: no limitations - History of Present Illness Initial Comments: 23-year-old male presenting for removal of packing of previous abscess. Patient states he had an abscess surgically I indeed had packing placed in mid December. Unsure of the surgeon knows that it was performed at hospital in [place]. [place] Patient states she has been unable to obtain a ride there. Patient states that the abscess has gone away since placement of the packing and the surgical I&D. Denies any fever or chills, drainage. Patient states there is slight redness near the area where the age packing is exiting. Otherwise he states he feels has no other complaints and the redness is caused by irritation from being left in too long. Remaining review of system negative. Upon arrival patient appears well signs of acute distress afebrile. - Related Data Home Medications Medication Instructions Recorded Confirmed levETIRAcetam [Keppra] 1,000 mg PO Q12HR 04/16/17 04/16/17 Previous Rx's Medication Instructions Recorded Nicotine 21Mg/24Hr Patch [Habitrol] 1 patch TRANSDERM DAILY #12 patch 04/21/17 OLANZapine [ZyPREXA] 5 mg PO TID #90 tab 04/21/17 hydrOXYzine PAMOATE [Vistaril] 25 mg PO BID PRN #40 cap 04/21/17 levETIRAcetam [Keppra] 1,000 mg PO Q12HR #60 tab 10/25/18 Sulfamethox-Tmp 800-160Mg [Bactrim 1 tab PO Q12HR #10 tab 01/11/19 DS 800-160 mg] Sulfamethox-Tmp 800-160Mg [Bactrim 1 tab PO Q12HR 7 Days #14 tab 01/20/19 DS 800-160 mg] Allergies Allergy/AdvReac Type Severity Reaction Status Date / Time No Known Allergies Allergy Verified 01/20/19 18:32 Review of Systems ROS Statement: Those systems with pertinent positive or pertinent negative responses have been documented in the HPI. ROS Other: All systems not noted in ROS Statement are negative. Past Medical History Past Medical History: Seizure Disorder Additional Past Medical History / Comment(s): Hepatitis C-- Dx five years ago. 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 Seizure - last was 04/16/17. History of Any Multi-Drug Resistant Organisms: None Reported Past Surgical History: Orthopedic Surgery, Tonsillectomy Additional Past Surgical History / Comment(s): Patient had right side jaw repair with a plate. Left arm repair due to a compound fracture in Past Anesthesia/Blood Transfusion Reactions: No Reported Reaction Past Psychological History: Anxiety, Depression Smoking Status: Current every day smoker Past Alcohol Use History: Occasional Past Drug Use History: Marijuana - Past Family History Father Family Medical History: No Reported History Mother Additional Family Medical History / Comment(s): Depression, Bipolar, ADD/ADHD Sister(s) Family Medical History: No Reported History Brother(s) Family Medical History: No Reported History General Exam - General Exam Comments Initial Comments: General: The patient is awake and alert, in no distress, and does not appear acutely ill. Eye: Pupils are equal, round and reactive to light, extra-ocular movements are intact. No nystagmus. There is normal conjunctiva bilaterally. No signs of icterus. Cardiovascular: There is a regular rate and rhythm. No murmur, rub or gallop is appreciated. Respiratory: Lungs are clear to auscultation, respirations are non-labored, breath sounds are equal. No wheezes, stridor, rales, or rhonchi. Musculoskeletal: Normal ROM, no tenderness. Strength 5/5. Sensation intact. Pulses equal bilaterally 2+. Neurological: A&O x 3. CN II-XII intact grossly, There are no obvious motor or sensory deficits. Coordination appears grossly intact. Speech is normal. Skin: Skin is warm and dry and no rashes or lesions are noted. 2 1cm incision with a plastic white tube through center, slight redness noted at exit of white tubing. No diffuse erythema. No fluctuant abscess. Tubing disconnected by one suture. Psychiatric: Cooperative, appropriate mood & affect, normal judgment. Limitations: no limitations Course Vital Signs 01/20/19 01/20/19 18:30 21:29 Temperature 98.0 F 98.1 F Pulse Rate 69 78 Respiratory 16 18 Rate Blood Pressure 108/71 110/75 O2 Sat by Pulse 97 98 Oximetry Medical Decision Making - Medical Decision Making Spoke with Dr. Wilcox a trauma surgeon at the facility where patient had surgical procedure. He stated that the packing may be removed at this time. With attending at bedside packing was removed. There signs of mild redness near the exiting of the packing. Patient denies any other symptoms. Patient started on Bactrim given slight redness no areas of fluctuance. Patient appears well I instructed patient to follow up with surgeon patient was discharged appearing well return parameters discussed. Disposition Clinical Impression: Abscess packing removal Disposition: HOME SELF-CARE Condition: Good Instructions (If sedation given, give patient instructions): Abscess (ED) Additional Instructions: Please use medication as discussed. Please follow-up with your surgeon. Please return to emergency room if the symptoms increase or worsen or for any other concerns. Prescriptions: Sulfamethox-Tmp 800-160Mg [Bactrim DS 800-160 mg] 1 tab PO Q12HR 7 Days #14 tab Is patient prescribed a controlled substance at d/c from ED?: No Referrals: None,Stated [Primary Care Provider] - 1-2 days [facility] [NON-STAFF] - 1-2 days Time of Disposition: 20:56
[2019-01-20 21:30] VITALS: BP 110/75; PULSE 78; RESP 18; TEMP 98.1
== END 2019-01-20 21:30 | disposition home or self-care (01) ==
LOC: EC 18:25
DX: Z48.01 Encounter for change or removal of surgical wound dressing (principal); G40.909 Epilepsy, unspecified, not intractable, without status epilepticus; F17.200 Nicotine dependence, unspecified, uncomplicated; Z79.899 Other long term (current) drug therapy
CPT/HCPCS: 99282

== ENCOUNTER 2019-01-27 21:01 | Emergency (ER) | payer OTHER ==
[2019-01-27 21:10] VITALS: RESP 18
[2019-01-27 21:47] LABS: Basophils # (A) 0.1 k/uL (0-0.2); Basophils % (A) 1 %; Eosinophils # (A) 0.2 k/uL (0-0.7); Eosinophils % (A) 3 %; HCT 43.1 % (39.0-53.0); HGB 14.1 gm/dL (13.0-17.5); Lymphocytes # (A) 1.6 k/uL (1.0-4.8); Lymphocytes % (A) 19 %; MCH 29.7 pg (25.0-35.0); MCHC 32.7 g/dL (31.0-37.0); MCV 90.6 fL (80.0-100.0); Mean Platelet Volume 6.5; Monocytes # (A) 0.4 k/uL (0-1.0); Monocytes % (A) 4 %; Neutrophils # (A) 6.1 k/uL (1.3-7.7); Neutrophils % (A) 71 %; Platelet Count 243 k/uL (150-450); RBC 4.75 m/uL (4.30-5.90); RDW 12.4 % (11.5-15.5); WBC 8.6 k/uL (3.8-10.6)
[2019-01-27 21:56] LABS: ALT 19 U/L (21-72); AST 20 U/L (17-59); African American GFR (CKD) >90 (>60 ml/min/1.73 sqM); Albumin 4.4 g/dL (3.5-5.0); Alkaline Phosphatase 71 U/L (38-126); Anion Gap 7 mmol/L; Blood Urea Nitrogen 11 mg/dL (9-20); Calcium 9.4 mg/dL (8.4-10.2); Carbon Dioxide 28 mmol/L (22-30); Chloride 103 mmol/L (98-107); Glucose 66 mg/dL (74-99); Potassium 3.9 mmol/L (3.5-5.1); Sodium 138 mmol/L (137-145); Total Bilirubin 0.5 mg/dL (0.2-1.3)
[2019-01-27 23:13] LABS: Glucose,Whole Blood 122 mg/dL (75-99)
--- NOTE | 2019-01-27 23:31 | ED ---
Seizure HPI - General Chief Complaint: Seizure Stated Complaint: Syncope Time Seen by Provider: 01/27/19 21:14 Source: patient Mode of arrival: ambulatory Limitations: no limitations - History of Present Illness Initial Comments: This patient is a 23-year-old man with history of seizure disorder, who presents after he had a seizure tonight. Patient states that he was just in the process of walking out of the pharmacy after having his Keppra refilled. He states that he had run out today, but does not believe that he had actually missed a dose. The patient was with a coworker who observed him to have a brief seizure. The patient states that he is feeling back at his baseline. He is not having headache. He is not believe he had any injury related to the seizure. He does complain of some aching in some of his muscles but states that he feels this is typical after seizure of his. Other review of systems patient does note that he has had some left-sided chest pains going back for number weeks intermittently. The pain is dull, intermittent, he has not discovered worsening or relieving factors. MD Complaint: seizure -: minutes(s) Description of Episode: loss of consciousness, tonic-clonic movement, post-event confusion -: second(s) Witnessed: yes - by bystander Trauma: No Seizure History: known seizure disorder Place: street/outdoors Possible Precipitating Event: none Treatments Prior to Arrival: none - Related Data Previous Rx's Medication Instructions Recorded levETIRAcetam [Keppra] 1,000 mg PO Q12HR #60 tab 10/25/18 Allergies Allergy/AdvReac Type Severity Reaction Status Date / Time No Known Allergies Allergy Verified 01/27/19 22:03 Review of Systems ROS Statement: Those systems with pertinent positive or pertinent negative responses have been documented in the HPI. ROS Other: All systems not noted in ROS Statement are negative. Constitutional: Denies: fever, chills, weakness Eyes: Denies: eye pain, vision change Respiratory: Denies: cough, dyspnea Cardiovascular: Reports: as per HPI, chest pain. Denies: palpitations, dyspnea on exertion, edema, syncope Gastrointestinal: Denies: abdominal pain, vomiting, diarrhea Genitourinary: Denies: dysuria, hematuria Musculoskeletal: Denies: back pain Skin: Denies: rash Neurological: Denies: headache, weakness, numbness Past Medical History Past Medical History: Seizure Disorder Additional Past Medical History / Comment(s): Hepatitis C-- Dx five years ago. 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 Seizure - History of Any Multi-Drug Resistant Organisms: None Reported Past Surgical History: Orthopedic Surgery, Tonsillectomy Additional Past Surgical History / Comment(s): Patient had right side jaw repair with a plate. Left arm repair due to a compound fracture in Past Anesthesia/Blood Transfusion Reactions: No Reported Reaction Past Psychological History: Anxiety, Depression Smoking Status: Current every day smoker Past Alcohol Use History: Occasional Past Drug Use History: Marijuana - Past Family History Father Family Medical History: No Reported History Mother Additional Family Medical History / Comment(s): Depression, Bipolar, ADD/ADHD Sister(s) Family Medical History: No Reported History Brother(s) Family Medical History: No Reported History General Exam Limitations: no limitations General appearance: alert, in no apparent distress Head exam: Present: atraumatic, normocephalic Eye exam: Present: normal appearance. Absent: scleral icterus, conjunctival injection ENT exam: Present: normal oropharynx Neck exam: Present: normal inspection, full ROM Respiratory exam: Present: normal lung sounds bilaterally. Absent: respiratory distress, wheezes, rales, rhonchi, stridor Cardiovascular Exam: Present: regular rate, normal rhythm, normal heart sounds. Absent: systolic murmur, diastolic murmur, rubs, gallop GI/Abdominal exam: Present: soft. Absent: distended, tenderness, guarding, rebound, rigid, mass Extremities exam: Present: normal inspection, normal capillary refill. Absent: pedal edema, calf tenderness Back exam: Present: normal inspection. Absent: CVA tenderness (R), CVA tenderness (L) Neurological exam: Present: alert Skin exam: Present: warm, dry, intact, normal color. Absent: rash Course Vital Signs 01/27/19 01/27/19 01/27/19 21:07 21:31 21:34 Temperature 97.8 F Pulse Rate 102 H 93 Pulse Rate [ 93 Cutting Torch Operator ] Respiratory 18 18 Rate Blood Pressure 104/64 129/72 O2 Sat by Pulse 100 100 Oximetry 01/27/19 23:54 Temperature 98 F Pulse Rate 80 Pulse Rate [ Cutting Torch Operator ] Respiratory 18 Rate Blood Pressure 112/71 O2 Sat by Pulse 100 Oximetry Medical Decision Making - Medical Decision Making Patient is 21-year-old man with history of seizure disorder. He did have a brief tonic-clonic seizure. Patient back at baseline. Denies injury related to seizure. His workup here within normal limits. Will have patient follow with neurology. - Lab Data Result diagrams: 01/27/19 21:26 01/27/19 21: Lab Results 01/27/19 01/27/19 01/27/19 Range/Units 21: 21: 21: WBC 8.6 (3.8-10.6) k/uL RBC 4.75 (4.30-5.90) m/uL Hgb 14.1 (13.0-17.5) gm/dL Hct 43.1 (39.0-53.0) % MCV 90.6 (80.0-100.0) fL MCH 29.7 (25.0-35.0) pg MCHC 32.7 (31.0-37.0) g/dL RDW 12.4 (11.5-15.5) % Plt Count 243 (150-450) k/uL Neutrophils % 71 % Lymphocytes % 19 % Monocytes % 4 % Eosinophils % 3 % Basophils % 1 % Neutrophils # 6.1 (1.3-7.7) k/uL Lymphocytes # 1.6 (1.0-4.8) k/uL Monocytes # 0.4 (0-1.0) k/uL Eosinophils # 0.2 (0-0.7) k/uL Basophils # 0.1 (0-0.2) k/uL D-Dimer 0.34 (<0.60) mg/L FEU Sodium 138 (137-145) mmol/L Potassium 3.9 (3.5-5.1) mmol/L Chloride 103 (98-107) mmol/L Carbon Dioxide 28 (22-30) mmol/L Anion Gap 7 mmol/L BUN 11 (9-20) mg/dL Creatinine 0.81 (0.66-1.25) mg/dL Est GFR (CKD-EPI)AfAm >90 (>60 ml/min/1.73 sqM) Est GFR (CKD-EPI)NonAf >90 (>60 ml/min/1.73 sqM) Glucose 66 L (74-99) mg/dL POC Glucose (mg/dL) (75-99) mg/dL POC Glu Transitional Care Liaison ID Plasma Lactic Acid Bautista (0.7-2.0) mmol/L Calcium 9.4 (8.4-10.2) mg/dL Total Bilirubin 0.5 (0.2-1.3) mg/dL AST 20 (17-59) U/L ALT 19 L (21-72) U/L Alkaline Phosphatase 71 (38-126) U/L Troponin I (0.000-0.034) ng/mL Total Protein 8.0 (6.3-8.2) g/dL Albumin 4.4 (3.5-5.0) g/dL 01/27/19 01/27/19 01/27/19 Range/Units 21:26 21:26 23:10 WBC (3.8-10.6) k/uL RBC (4.30-5.90) m/uL Hgb (13.0-17.5) gm/dL Hct (39.0-53.0) % MCV (80.0-100.0) fL MCH (25.0-35.0) pg MCHC (31.0-37.0) g/dL RDW (11.5-15.5) % Plt Count (150-450) k/uL Neutrophils % % Lymphocytes % % Monocytes % % Eosinophils % % Basophils % % Neutrophils # (1.3-7.7) k/uL Lymphocytes # (1.0-4.8) k/uL Monocytes # (0-1.0) k/uL Eosinophils # (0-0.7) k/uL Basophils # (0-0.2) k/uL D-Dimer (<0.60) mg/L FEU Sodium (137-145) mmol/L Potassium (3.5-5.1) mmol/L Chloride (98-107) mmol/L Carbon Dioxide (22-30) mmol/L Anion Gap mmol/L BUN (9-20) mg/dL Creatinine (0.66-1.25) mg/dL Est GFR (CKD-EPI)AfAm (>60 ml/min/1.73 sqM) Est GFR (CKD-EPI)NonAf (>60 ml/min/1.73 sqM) Glucose (74-99) mg/dL POC Glucose (mg/dL) 122 H (75-99) mg/dL POC Glu Transitional Care Liaison Leticia Cade Plasma Lactic Acid Bautista 1.1 (0.7-2.0) mmol/L Calcium (8.4-10.2) mg/dL Total Bilirubin (0.2-1.3) mg/dL AST (17-59) U/L ALT (21-72) U/L Alkaline Phosphatase (38-126) U/L Troponin I <0.012 (0.000-0.034) ng/mL Total Protein (6.3-8.2) g/dL Albumin (3.5-5.0) g/dL Disposition Clinical Impression: Generalized seizure Disposition: HOME SELF-CARE Condition: Good Instructions (If sedation given, give patient instructions): Recurrent Seizures in Adults (ED) Is patient prescribed a controlled substance at d/c from ED?: No Referrals: None,Stated [Primary Care Provider] - 1-2 days
[2019-01-27] MEDS ORDERED: levETIRAcetam 500 MG TAB PO STA (23:49)
[2019-01-27 23:55] VITALS: BP 112/71; PULSE 80; TEMP 98
== END 2019-01-28 00:17 | disposition home or self-care (01) ==
LOC: EC 21:01
DX: G40.409 Other generalized epilepsy and epileptic syndromes, not intractable, without status epilepticus (principal); B19.20 Unspecified viral hepatitis C without hepatic coma; R07.89 Other chest pain; F17.200 Nicotine dependence, unspecified, uncomplicated; Z87.820 Personal history of traumatic brain injury
CPT/HCPCS: 36415; 80053; 80177; 83605; 84484; 85025; 85379; 87040; 93005; 99284

== ENCOUNTER 2019-01-29 11:42 | Emergency (ER) | payer OTHER ==
[2019-01-29] MEDS ORDERED: levETIRAcetam IV 1,000 MG in SALINE 1 100ML.BAG IVPB STA (12:03)
--- NOTE | 2019-01-29 12:23 | ED ---
General Adult HPI - General Chief complaint: Seizure Stated complaint: SEIZURE Time Seen by Provider: 01/29/19 12:02 Source: EMS Mode of arrival: EMS Limitations: no limitations - History of Present Illness Initial comments: Dictation was produced using [employer] dictation software. please excuse any grammatical, word or spelling errors. Chief Complaint: 23-year-old male brought in by EMS for seizure. History of Present Illness: 23-year-old male presents after episode of seizure. He is brought in by EMS. Patient states that EMS was called by his roommate who was at home. Patient states he had a seizure earlier today. Patient has been having multiple seizures. He takes Keppra. He has been noncompliant with his medications over the last several days. Patient has no complaints at this time. His neurologist is based out of [place]. The ROS documented in this emergency department record has been reviewed and confirmed by me. Those systems with pertinent positive or negative responses have been documented in the HPI. All other systems are other negative and/or noncontributory. PHYSICAL EXAM: General Impression: Alert and oriented x3, not in acute distress HEENT: Normocephalic atraumatic, extra-ocular movements intact, pupils equal and reactive to light bilaterally, mucous membranes moist. Cardiovascular: Heart regular rate and rhythm, S1&S2 audible, no murmurs, rubs or gallops Chest: Lungs clear to auscultation bilaterally, no rhonchi, no wheeze, no rales Abdomen: Bowel sounds present, abdomen soft, non-tender, non-distended, no organomegaly Musculoskeletal: Pulses present and equal in all extremities, no peripheral edema Motor: no focal deficits noted Neurological: CN II-XII grossly intact, no focal motor or sensory deficits noted Skin: Intact with no visualized rashes Psych: Normal affect and mood ED course: 23-year-old male presents after a seizure. Patient is noncompliant with his antiseizure medications. As upon arrival shows heart rate of 105, respiratory signs within acceptable limits. Physical examination is benign. EKG is unremarkable. Patient's tolerating by mouth at bedside. Ambulatory evaluation obtained. CBC, metabolic panel is unremarkable. Patient loaded with Keppra. Patient prescription for Keppra. He is strongly urged to follow-up with his neurologist. He is also strongly urged to be compliant with his seizure medications. EKG interpretation: Ventricular rate 93, normal sinus rhythm, SD interval 24, care is 86, QTC 437. No SD prolongation, no QTC prolongation, no ST or T-wave changes noted. Overall, this EKG is unremarkable - Related Data Previous Rx's Medication Instructions Recorded levETIRAcetam [Keppra] 1,000 mg PO Q12HR #60 tab 10/25/18 levETIRAcetam [Keppra] 1,000 mg PO Q12HR 15 Days #30 tab 01/29/19 Allergies Allergy/AdvReac Type Severity Reaction Status Date / Time No Known Allergies Allergy Verified 01/29/19 11:58 Review of Systems ROS Statement: Those systems with pertinent positive or pertinent negative responses have been documented in the HPI. ROS Other: All systems not noted in ROS Statement are negative. Past Medical History Past Medical History: Seizure Disorder Additional Past Medical History / Comment(s): Hepatitis C. 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 History of Any Multi-Drug Resistant Organisms: None Reported Past Surgical History: Orthopedic Surgery, Tonsillectomy Additional Past Surgical History / Comment(s): Patient had right side jaw repair with a plate. Left arm repair due to a compound fracture in Past Anesthesia/Blood Transfusion Reactions: No Reported Reaction Past Psychological History: Anxiety, Depression Smoking Status: Current every day smoker Past Alcohol Use History: Occasional Past Drug Use History: Heroin, Marijuana - Past Family History Father Family Medical History: No Reported History Mother Additional Family Medical History / Comment(s): Depression, Bipolar, ADD/ADHD Sister(s) Family Medical History: No Reported History Brother(s) Family Medical History: No Reported History General Exam Limitations: no limitations Course Vital Signs 01/29/19 01/29/19 01/29/19 11:47 12:29 13:00 Temperature 98.8 F Pulse Rate 105 H 77 90 Respiratory 20 16 Rate Blood Pressure 107/77 121/73 O2 Sat by Pulse 100 98 Oximetry Medical Decision Making - Lab Data Result diagrams: 01/29/19 12:26 01/29/19 12:26 Lab Results 01/29/19 01/29/19 Range/Units 12:26 12:26 WBC 5.3 (3.8-10.6) k/uL RBC 5.29 (4.30-5.90) m/uL Hgb 15.8 (13.0-17.5) gm/dL Hct 48.8 (39.0-53.0) % MCV 92.3 (80.0-100.0) fL MCH 29.9 (25.0-35.0) pg MCHC 32.4 (31.0-37.0) g/dL RDW 12.4 (11.5-15.5) % Plt Count 261 (150-450) k/uL Neutrophils % 72 % Lymphocytes % 19 % Monocytes % 4 % Eosinophils % 1 % Basophils % 1 % Neutrophils # 3.8 (1.3-7.7) k/uL Lymphocytes # 1.0 (1.0-4.8) k/uL Monocytes # 0.2 (0-1.0) k/uL Eosinophils # 0.1 (0-0.7) k/uL Basophils # 0.0 (0-0.2) k/uL Sodium 140 (137-145) mmol/L Potassium 5.2 H (3.5-5.1) mmol/L Chloride 105 (98-107) mmol/L Carbon Dioxide 23 (22-30) mmol/L Anion Gap 12 mmol/L BUN 12 (9-20) mg/dL Creatinine 0.84 (0.66-1.25) mg/dL Est GFR (CKD-EPI)AfAm >90 (>60 ml/min/1.73 sqM) Est GFR (CKD-EPI)NonAf >90 (>60 ml/min/1.73 sqM) Glucose 77 (74-99) mg/dL Calcium 10.4 H (8.4-10.2) mg/dL Magnesium 2.6 H (1.6-2.3) mg/dL Disposition Clinical Impression: Seizure Disposition: HOME SELF-CARE Condition: Good Instructions (If sedation given, give patient instructions): Recurrent Seizures in Adults (ED) Prescriptions: levETIRAcetam [Keppra] 1,000 mg PO Q12HR 15 Days #30 tab Is patient prescribed a controlled substance at d/c from ED?: No Referrals: None,Stated [Primary Care Provider] - 1-2 days Time of Disposition: 13:43
[2019-01-29 12:41] LABS: Basophils % (A) 1 %; Eosinophils # (A) 0.1 k/uL (0-0.7); Eosinophils % (A) 1 %; HCT 48.8 % (39.0-53.0); HGB 15.8 gm/dL (13.0-17.5); Lymphocytes % (A) 19 %; MCH 29.9 pg (25.0-35.0); MCHC 32.4 g/dL (31.0-37.0); MCV 92.3 fL (80.0-100.0); Mean Platelet Volume 6.6; Monocytes # (A) 0.2 k/uL (0-1.0); Monocytes % (A) 4 %; Neutrophils # (A) 3.8 k/uL (1.3-7.7); Neutrophils % (A) 72 %; Platelet Count 261 k/uL (150-450); RBC 5.29 m/uL (4.30-5.90); RDW 12.4 % (11.5-15.5); WBC 5.3 k/uL (3.8-10.6)
[2019-01-29 12:59] LABS: African American GFR (CKD) >90 (>60 ml/min/1.73 sqM); Anion Gap 12 mmol/L; Blood Urea Nitrogen 12 mg/dL (9-20); Calcium 10.4 mg/dL (8.4-10.2); Carbon Dioxide 23 mmol/L (22-30); Chloride 105 mmol/L (98-107); Glucose 77 mg/dL (74-99); Magnesium 2.6 mg/dL (1.6-2.3); Potassium 5.2 mmol/L (3.5-5.1); Sodium 140 mmol/L (137-145)
[2019-01-29 13:57] VITALS: BP 118/75; PULSE 85; RESP 18; TEMP 98
== END 2019-01-29 13:57 | disposition home or self-care (01) ==
LOC: EC 11:42
DX: G40.909 Epilepsy, unspecified, not intractable, without status epilepticus (principal); F17.200 Nicotine dependence, unspecified, uncomplicated; Z91.19 Patient's noncompliance with other medical treatment and regimen
CPT/HCPCS: 36415; 93005; 80048; 83735; 85025; 99284; 96365; J1953

== ENCOUNTER 2019-02-01 22:17 | Emergency (ER) | payer BC, OTHER ==
[2019-02-01 22:27] VITALS: BP 120/71; PULSE 116; RESP 20; TEMP 98
--- NOTE | 2019-02-01 22:46 | ED ---
General Adult HPI - General Chief complaint: Extremity Injury, Lower Stated complaint: Knee cap pain Source: patient Mode of arrival: wheelchair Limitations: no limitations - History of Present Illness Initial comments: Macario is a 23-year-old male with a history of polysubstance abuse who presents the ER this evening for evaluation of atraumatic left knee pain. Patient reports that he was been walking when his left knee began hurting, patient came to the ER was very agitated was observed to be walking back and forth in front of the injury to the emergency department for 15-30 minutes prior to checking in. - Related Data Previous Rx's Medication Instructions Recorded levETIRAcetam [Keppra] 1,000 mg PO Q12HR 15 Days #30 tab 01/29/19 Allergies Allergy/AdvReac Type Severity Reaction Status Date / Time No Known Allergies Allergy Verified 02/01/19 22:31 Review of Systems ROS Statement: Those systems with pertinent positive or pertinent negative responses have been documented in the HPI. ROS Other: All systems not noted in ROS Statement are negative. Past Medical History Past Medical History: Seizure Disorder Additional Past Medical History / Comment(s): Hepatitis C. 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 History of Any Multi-Drug Resistant Organisms: None Reported Past Surgical History: Orthopedic Surgery, Tonsillectomy Additional Past Surgical History / Comment(s): Patient had right side jaw repair with a plate. Left arm repair due to a compound fracture in Past Anesthesia/Blood Transfusion Reactions: No Reported Reaction Past Psychological History: Anxiety, Depression Smoking Status: Current every day smoker Past Alcohol Use History: Occasional Past Drug Use History: Heroin, Marijuana - Past Family History Father Family Medical History: No Reported History Mother Additional Family Medical History / Comment(s): Depression, Bipolar, ADD/ADHD Sister(s) Family Medical History: No Reported History Brother(s) Family Medical History: No Reported History General Exam - General Exam Comments Initial Comments: Physical Exam GENERAL: agitated pacing around the room, when asked to sit on the exam table so that I could examine his knee, patient sits but then uses his arms to lift the leg onto the bed as if the leg is paralyzed though he has been standing and walking HENT: Normocephalic, Atraumatic. EYES: PERRL PULMONARY: Unlabored respirations CARDIOVASCULAR: RRR ABDOMEN: Nondistended SKIN: Skin is clear with no lesions or rashes and otherwise unremarkable. No rash no erythema : Deferred NEUROLOGIC: Patient is alert and oriented x3. Moving all extremities spontaneously MUSCULOSKELETAL: Normal extremities with adequate strength and full range of motion. No lower extremity swelling or edema. No calf tenderness. The left knee is not erythematous, there is no pain with range of motion, Soila and Rosanna tests negative PSYCHIATRIC: Agitated appears to be intoxicated or under the influence Limitations: no limitations Course Vital Signs 02/01/19 22:23 Temperature 98.0 F Pulse Rate 116 H Respiratory 20 Rate Blood Pressure 120/71 O2 Sat by Pulse 99 Oximetry Medical Decision Making - Medical Decision Making Patient was seen and evaluated, patient is pacing around the exam room, pulmonary injury patient is somewhat paranoid, he states that he was speed walking and his left knee began hurting, there is no obvious injury he had no fall, physical exam is unremarkable an x-ray was obtained and no acute findings, physical exam has no concern for septic joint, the knee is not red or swollen. There is no pain with range of motion. At this time patient stable for discharge home, knee was wrapped in an Ayo wrap the patient was discharged in stable condition. Disposition Clinical Impression: Left knee pain Disposition: HOME SELF-CARE Condition: Stable Instructions (If sedation given, give patient instructions): Knee Sprain (ED) Is patient prescribed a controlled substance at d/c from ED?: No Referrals: None,Stated [Primary Care Provider] - 1-2 days
--- NOTE | 2019-02-01 22:47 | XR ---
EXAMINATION TYPE: XR knee complete LT DATE OF EXAM: 02/01/2019 COMPARISON: NONE HISTORY: Knee pain TECHNIQUE: 3 views FINDINGS: I see no fracture nor dislocation. Joint spaces are normal. There is no sign of joint effus ion. IMPRESSION: Negative left knee exam.
== END 2019-02-01 23:14 | disposition home or self-care (01) ==
LOC: EC 22:17
DX: M25.562 Pain in left knee (principal); F10.129 Alcohol abuse with intoxication, unspecified; R45.1 Restlessness and agitation; F17.200 Nicotine dependence, unspecified, uncomplicated
CPT/HCPCS: 99283

== ENCOUNTER 2019-02-26 16:59 | Observation (INO) | payer OTHER ==
--- NOTE | 2019-02-26 17:09 | ED ---
Seizure HPI - General Chief Complaint: Seizure Stated Complaint: seizures Time Seen by Provider: 02/26/19 17:07 Source: patient, EMS, RN notes reviewed, old records reviewed Mode of arrival: EMS Limitations: no limitations - History of Present Illness Initial Comments: This is a 23-year-old male to ER for evaluation of seizure symptoms with history of seizure she does not know specific cause of the seizures does have drug abuse history. Denies recent alcohol or a coldness history. Patient does admit to recent incarceration this past couple he has been taking up until last night. Daily headaches cervical bruits. Recur complaints. Patient has not seen his neurologist in quite some time and he does not have a neurologist in town Complaint: seizure -: hour(s) Description of Episode: loss of consciousness, tonic-clonic movement -: minutes(s) Witnessed: yes - by bystander Trauma: Yes Seizure History: known seizure disorder Place: home Possible Precipitating Event: none Associated Symptoms: denies other symptoms Treatments Prior to Arrival: none - Related Data Home Medications Medication Instructions Recorded Confirmed levETIRAcetam [Keppra] 1,000 mg PO BID 02/26/19 02/26/19 Allergies Allergy/AdvReac Type Severity Reaction Status Date / Time No Known Allergies Allergy Verified 02/26/19 18:15 Review of Systems ROS Statement: Those systems with pertinent positive or pertinent negative responses have been documented in the HPI. ROS Other: All systems not noted in ROS Statement are negative. Past Medical History Past Medical History: Seizure Disorder Additional Past Medical History / Comment(s): Hepatitis C. 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 History of Any Multi-Drug Resistant Organisms: None Reported Past Surgical History: Orthopedic Surgery, Tonsillectomy Additional Past Surgical History / Comment(s): Patient had right side jaw repair with a plate. Left arm repair due to a compound fracture in Past Anesthesia/Blood Transfusion Reactions: No Reported Reaction Past Psychological History: Anxiety, Depression Smoking Status: Current every day smoker Past Alcohol Use History: Occasional Past Drug Use History: Heroin, Marijuana - Past Family History Father Family Medical History: No Reported History Mother Additional Family Medical History / Comment(s): Depression, Bipolar, ADD/ADHD Sister(s) Family Medical History: No Reported History Brother(s) Family Medical History: No Reported History General Exam General appearance: alert, in no apparent distress Head exam: Present: atraumatic, normocephalic, normal inspection Eye exam: Present: normal appearance, PERRL, EOMI. Absent: scleral icterus, conjunctival injection, periorbital swelling ENT exam: Present: normal exam, mucous membranes moist Neck exam: Present: normal inspection. Absent: tenderness, meningismus, lymphadenopathy Respiratory exam: Present: normal lung sounds bilaterally. Absent: respiratory distress, wheezes, rales, rhonchi, stridor Cardiovascular Exam: Present: regular rate, normal rhythm, normal heart sounds. Absent: systolic murmur, diastolic murmur, rubs, gallop, clicks GI/Abdominal exam: Present: soft, normal bowel sounds. Absent: distended, tenderness, guarding, rebound, rigid Extremities exam: Present: normal inspection, full ROM, normal capillary refill. Absent: tenderness, pedal edema, joint swelling, calf tenderness Back exam: Present: normal inspection Neurological exam: Present: alert, oriented X3, CN II-XII intact Psychiatric exam: Present: normal affect, normal mood Skin exam: Present: warm, dry, intact, normal color. Absent: rash Course Vital Signs 02/26/19 02/26/19 17:00 19:19 Temperature 98.1 F 97.8 F Pulse Rate 88 70 Respiratory 18 19 Rate Blood Pressure 125/83 119/77 O2 Sat by Pulse 98 100 Oximetry - Reevaluation(s) Reevaluation #1: 02/26/19 19:51 medical record is reviewed Reevaluation #2: 02/26/19 19:51 Patient has no recurrent seizure in the ER does not feel safe for discharge Medical Decision Making - Medical Decision Making 23 male to the ED of evaluation of tonic-clonic seizures. No recent neurologic evaluation patient has evaluation for seizures a woman for seizure evaluation, neurology evaluation - Lab Data Result diagrams: 02/26/19 16:05 02/26/19 16:05 Lab Results 02/26/19 02/26/19 02/26/19 Range/Units 16:05 16:05 16:05 WBC 4.8 (3.8-10.6) k/uL RBC 4.30 (4.30-5.90) m/uL Hgb 12.9 L (13.0-17.5) gm/dL Hct 38.7 L (39.0-53.0) % MCV 90.0 (80.0-100.0) fL MCH 30.1 (25.0-35.0) pg MCHC 33.5 (31.0-37.0) g/dL RDW 12.6 (11.5-15.5) % Plt Count 204 (150-450) k/uL Neutrophils % 57 % Lymphocytes % 27 % Monocytes % 7 % Eosinophils % 4 % Basophils % 1 % Neutrophils # 2.7 (1.3-7.7) k/uL Lymphocytes # 1.3 (1.0-4.8) k/uL Monocytes # 0.4 (0-1.0) k/uL Eosinophils # 0.2 (0-0.7) k/uL Basophils # 0.1 (0-0.2) k/uL Sodium 136 L (137-145) mmol/L Potassium 4.9 (3.5-5.1) mmol/L Chloride 104 (98-107) mmol/L Carbon Dioxide 24 (22-30) mmol/L Anion Gap 8 mmol/L BUN 8 L (9-20) mg/dL Creatinine 0.80 (0.66-1.25) mg/dL Est GFR (CKD-EPI)AfAm >90 (>60 ml/min/1.73 sqM) Est GFR (CKD-EPI)NonAf >90 (>60 ml/min/1.73 sqM) Glucose 64 L (74-99) mg/dL Calcium 8.9 (8.4-10.2) mg/dL Total Bilirubin 0.7 (0.2-1.3) mg/dL AST 243 H (17-59) U/L ALT 378 H (21-72) U/L Alkaline Phosphatase 86 (38-126) U/L Total Protein 6.9 (6.3-8.2) g/dL Albumin 3.8 (3.5-5.0) g/dL Urine Color Yellow Urine Appearance Clear (Clear) Urine pH 6.0 (5.0-8.0) Ur Specific Dane 1.014 (1.001-1.035) Urine Protein Trace H (Negative) Urine Glucose (UA) Negative (Negative) Urine Ketones 1+ H (Negative) Urine Blood Negative (Negative) Urine Nitrite Negative (Negative) Urine Bilirubin Negative (Negative) Urine Urobilinogen <2.0 (<2.0) mg/dL Ur Leukocyte Esterase Negative (Negative) Salicylates <1.0 mg/dL Urine Opiates Screen Not Detected (NotDetected) Ur Oxycodone Screen Not Detected (NotDetected) Urine Methadone Screen Not Detected (NotDetected) Ur Propoxyphene Screen Not Detected (NotDetected) Acetaminophen <10.0 ug/mL Ur Barbiturates Screen Not Detected (NotDetected) U Tricyclic Antidepress Not Detected (NotDetected) Ur Phencyclidine Scrn Not Detected (NotDetected) Ur Amphetamines Screen Detected H (NotDetected) U Methamphetamines Scrn Detected H (NotDetected) U Benzodiazepines Scrn Not Detected (NotDetected) Urine Cocaine Screen Not Detected (NotDetected) U Marijuana (THC) Screen Detected H (NotDetected) Serum Alcohol <10 mg/dL - EKG Data -: EKG Interpreted by Me (EKG shows NSR rate of 85 CT 132 QRS 78 QTc 445) Disposition Clinical Impression: Seizure disorder, Cannabis use disorder, mild, abuse, Opioid use disorder, moderate, dependence, History of intracerebral hemorrhage without residual deficit, Seizure, New onset seizure, Epileptic seizure, generalized Disposition: ADMITTED IP TO THIS [facility] Condition: Fair Instructions (If sedation given, give patient instructions): Recurrent Seizures in Adults (ED) Is patient prescribed a controlled substance at d/c from ED?: No Referrals: None,Stated [Primary Care Provider] - 1-2 days
[2019-02-26] MEDS ORDERED: LORazepam 2 MG/ML INJ IV STA (17:19)
[2019-02-26] MEDS ORDERED: SODIUM CHLORIDE 0.9% 1,000 ML IV STA (17:19)
[2019-02-26] MEDS ORDERED: levETIRAcetam IV 1,500 MG in SALINE 1 100ML.BAG IVPB STA (17:20)
[2019-02-26 17:59] LABS: Appearance,Urine Clear (Clear); Basophils # (A) 0.1 k/uL (0-0.2); Basophils % (A) 1 %; Bilirubin,Urine Negative (Negative); Blood,Urine Negative (Negative); Color,Urine Yellow; Eosinophils # (A) 0.2 k/uL (0-0.7); Eosinophils % (A) 4 %; Glucose,Urine (UA) Negative (Negative); HCT 38.7 % (39.0-53.0); HGB 12.9 gm/dL (13.0-17.5); Ketones,Urine 1+ (Negative); Leukocyte Esterase,Urine Negative (Negative); Lymphocytes # (A) 1.3 k/uL (1.0-4.8); Lymphocytes % (A) 27 %; MCH 30.1 pg (25.0-35.0); MCHC 33.5 g/dL (31.0-37.0); Mean Platelet Volume 6.6; Monocytes # (A) 0.4 k/uL (0-1.0); Monocytes % (A) 7 %; Neutrophils # (A) 2.7 k/uL (1.3-7.7); Neutrophils % (A) 57 %; Nitrite,Urine Negative (Negative); Platelet Count 204 k/uL (150-450); Protein,Urine Trace (Negative); RDW 12.6 % (11.5-15.5); Specific Gravity,Urine 1.014 (1.001-1.035); Urobilinogen,Urine <2.0 mg/dL (<2.0); WBC 4.8 k/uL (3.8-10.6)
[2019-02-26 18:02] LABS: ALT 378 U/L (21-72); AST 243 U/L (17-59); Acetaminophen <10.0 ug/mL; African American GFR (CKD) >90 (>60 ml/min/1.73 sqM); Albumin 3.8 g/dL (3.5-5.0); Alcohol <10 mg/dL; Alkaline Phosphatase 86 U/L (38-126); Anion Gap 8 mmol/L; Blood Urea Nitrogen 8 mg/dL (9-20); Calcium 8.9 mg/dL (8.4-10.2); Carbon Dioxide 24 mmol/L (22-30); Chloride 104 mmol/L (98-107); Glucose 64 mg/dL (74-99); Non-African American GFR(CKD) >90 (>60 ml/min/1.73 sqM); Potassium 4.9 mmol/L (3.5-5.1); Salicylate <1.0 mg/dL; Sodium 136 mmol/L (137-145); Total Bilirubin 0.7 mg/dL (0.2-1.3); Total Protein 6.9 g/dL (6.3-8.2)
[2019-02-26 18:12] LABS: Amphetamine Screen,Urine Detected (NotDetected); Barbiturate Screen,Urine Not Detected (NotDetected); Benzodiazepines Screen,Urine Not Detected (NotDetected); Cocaine Screen,Urine Not Detected (NotDetected); Methadone Screen, Urine Not Detected (NotDetected); Opiate Screen,Urine Not Detected (NotDetected); Oxycodone Screen, Urine Not Detected (NotDetected); Phencyclidine Screen,Urine Not Detected (NotDetected); Tricyclic Antidepressant,Urine Not Detected (NotDetected); Urn Cannabinoid Scrn Detected (NotDetected)
[2019-02-26] MEDS ORDERED: ASPIRIN 325 MG TAB PO STA (18:28)
[2019-02-26] MEDS: SODIUM CHLORIDE 0.9% 1,000 ML IV SCH (19:12)
[2019-02-26 21:03] VITALS: RESP 16
[2019-02-26] MEDS ORDERED: LORazepam 2 MG/ML INJ IV PRN (22:24)
[2019-02-26] MEDS: NICOTINE 21MG/24HR PATCH TRANSDERM SCH (22:49)
[2019-02-27] MEDS ORDERED: levETIRAcetam IV 1,000 MG in SALINE 1 100ML.BAG IVPB SCH (09:00)
[2019-02-27] MEDS: SODIUM CHLORIDE 0.9% 1,000 ML IV SCH (09:12)
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
[2019-02-27] MEDS: NICOTINE 21MG/24HR PATCH TRANSDERM SCH (12:03)
--- NOTE | 2019-02-27 17:19 | HP ---
HISTORY AND PHYSICAL DATE OF SERVICE: 02/26/2019 CHIEF COMPLAINT: Seizure disorder. HISTORY OF PRESENT ILLNESS: This 23-year-old gentleman with a past medical history of multiple medical problems, including seizure disorder, history of hepatitis C, history of traumatic brain bleed, history of DJD, history of anxiety, depression, history of heroin, history of THC, being followed by no primary physician in the outpatient setting, was admitted with seizure disorder. The patient's roommate witnessed seizures, generalized tonic- clonic, and the patient does not know what exactly happened, but patient had a premonition and alerted the roommate about the seizure. The patient had a recent incarceration, also. Because of increasing seizures, the patient was taken to [facility] and admitted further for evaluation and treatment. There is no history of any fever, rigors, chills. No history of any chest pain or palpitations, hematochezia or melena at this time. PAST MEDICAL HISTORY: 1. History of seizure disorder. 2. Hepatitis C. 3. History of brain bleed 4. History of anxiety, depression. MEDICATIONS: Medication prior to admission includes Keppra 1000 mg p.o. b.i.d. ALLERGIES: NONE. FAMILY HISTORY: History of depression, bipolar, ADHD. SOCIAL HISTORY: History of nicotine dependence, heroin, alcohol, THC. REVIEW OF SYSTEMS: ENT: As mentioned earlier. CARDIOVASCULAR SYSTEM: No angina, palpitations. RESPIRATORY SYSTEM: Occasional cough. GI: No nausea, vomiting. : No dysuria or retention. NERVOUS SYSTEM: As mentioned earlier. ALLERGY/IMMUNOLOGY: No asthma, hayfever. MUSCULOSKELETAL: As mentioned earlier. HEMATOLOGY/ONCOLOGY: No history of anemia. ENDOCRINE: No history of diabetes, hypothyroidism. CONSTITUTIONAL: As mentioned earlier. DERMATOLOGY: Negative. RHEUMATOLOGY: Negative. PSYCHIATRY: As mentioned earlier. PHYSICAL EXAMINATION: Patient is alert, oriented x3. Pulse is 89, blood pressure 139/72, respirations 16, temperature 98.2, pulse ox 99% on room air. HEENT: Conjunctivae normal. Oral mucosa moist. NECK: No jugular venous distention. No carotid bruit. No lymph node enlargement. CARDIOVASCULAR SYSTEM: S1, S2 muffled. RESPIRATORY SYSTEM: Breath sounds diminished at the bases. No rhonchi. No crackles. ABDOMEN: Soft, non-tender. No mass palpable. LEGS: No edema. No swelling. NERVOUS SYSTEM: Higher functions as mentioned earlier. Moves all 4 limbs. No focal motor or sensory deficit. LYMPHATICS: No lymph node palpable in neck, axillae or groin. SKIN: No ulcer, rash, bleeding. JOINTS: No active deforming arthropathy. LABS: Labs at this time show WBC 4.8, hemoglobin 12.9, sodium 136. AST and ALT noted. ASSESSMENT: 1. Acute seizure disorder with breakthrough seizures. 2. History of seizure disorder. 3. Anemia, normocytic; anemia of undetermined etiology. 4. Hyponatremia. 5. Increased AST and ALT, possibly chronic hepatitis C. 6. History of hepatitis C. 7. History of traumatic brain bleed. 8. History of tonsillectomy. 9. History of anxiety, depression. 10.History of nicotine dependence. 11.History of tetrahydrocannabinol. 12.History of heroin abuse. RECOMMENDATIONS AND DISCUSSION: I recommend to continue current medications, continue with the monitoring, symptomatic treatment. Otherwise, neurology evaluation. Will initiate Keppra loading dose and 1000 mg p.o. b.i.d. dose. Resume the rest of the medication. Telemetry to rule out cardiac causes. Otherwise, prognosis guarded because of multiple complex medical issues. Further recommendations to follow. I would also recommend acute hepatitis panel. See orders for further details. MMODL / IJN: [id number] / GUERDA
--- NOTE | 2019-02-27 17:34 | PN ---
PROGRESS NOTE DATE OF SERVICE: 02/27/2019 This is a 23-year-old gentleman, admitted with recurrent seizures and witnessed seizures, is being closely monitored. The patient was given IV Keppra with Dilaudid and currently the patient is on Keppra 1.5 gm_ twice daily and the patient is being closely monitored by Neurology also. The patient had some previous workup, including CT scan of the brain last year. CT scan showed encephalomalacia, right frontal lobe, previous insult. Past medical history reviewed. REVIEW OF SYSTEMS: CARDIOVASCULAR SYSTEM: No angina, palpitations. RESPIRATORY SYSTEM: As mentioned earlier. GI: As mentioned earlier. : No dysuria or retention. NERVOUS SYSTEM: As mentioned earlier. CURRENT MEDICATIONS: Reviewed. They include: 1. Aspirin 325 mg at bedtime. 2. Keppra 1.5 gm b.i.d. 3. Ativan p.r.n. 4. Habitrol 21 daily. PHYSICAL EXAMINATION: Patient is alert, oriented x3. Pulse 71, blood pressure 118/65, respirations 16, temperature 97.1, pulse ox 100% on room air. HEENT: Conjunctivae normal. Oral mucosa moist. NECK: No jugular venous distention. No carotid bruit. No lymph node enlargement. CARDIOVASCULAR SYSTEM: S1, S2 muffled. No S3. No S4. RESPIRATORY SYSTEM: Breath sounds diminished at the bases. No rhonchi. No crackles. ABDOMEN: Soft, non-tender. No mass palpable. LEGS: No edema. No swelling. NERVOUS SYSTEM: Higher functions as mentioned earlier. Moves all 4 limbs. No focal motor or sensory deficit. LYMPHATICS: No lymph node palpable in neck, axillae or groin. JOINTS: No active deforming arthropathy. LABS: Lab investigations at this time show WBC 4.8, hemoglobin 12.9, sodium 136. AST, ALT noted. ASSESSMENT: 1. Acute seizure disorder. 2. Possibly 3 seizures and uncontrolled seizures. 3. Anemia, normocytic; anemia of chronic disease. 4. Hyponatremia. 5. 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 6. Increased AST and ALT, possibly chronic hepatitis C. 7. Hypoglycemia, mild. 8. History of hepatitis C. 9. History of degenerative joint disease. 10.History of anxiety, depression. 11.History of nicotine dependence. 12.History of heroin. 13.History of tetrahydrocannabinol. 14.Drug screen showing methamphetamine. RECOMMENDATIONS AND DISCUSSION: In this 23-year-old gentleman who presented with multiple medical issues, at this time I recommend to continue current medications, continue symptomatic treatment, continue with the Keppra, seizure precautions. I would also recommend continued neurology consultation and also telemetry to rule out the possibility of any primary cardiac abnormality. The importance of compliance was also stressed with the patient. I also recommended that he follow up closely with a primary physician and neurologist. The patient does not have a primary physician or neurologist in town. Evaluation with Dr. Mckeon in the outpatient setting is also recommended. Overall prognosis is guarded. Further recommendations to follow. MMODL / IJN: [id number] / MTDD
[2019-02-27] MEDS: levETIRAcetam 500 MG TAB PO SCH (20:57)
[2019-02-27] MEDS ORDERED: ASPIRIN 325 MG TAB PO SCH (21:00)
[2019-02-27 21:19] LABS: Hepatitis A Antibody IgM Non-Reactive (Non-Reactive); Hepatitis B Core IgM Non-Reactive (Non-Reactive); Hepatitis B Surface Antigen Non-Reactive (Non-Reactive); Hepatitis C IgG Antibody Reactive (Non-Reactive)
[2019-02-28] MEDS: levETIRAcetam 500 MG TAB PO SCH (08:16)
[2019-02-28] MEDS: SODIUM CHLORIDE 0.9% 1,000 ML IV SCH (08:16)
[2019-02-28 08:24] LABS: ALT 708 U/L (21-72); AST 488 U/L (17-59); African American GFR (CKD) >90 (>60 ml/min/1.73 sqM); Albumin 4.4 g/dL (3.5-5.0); Alkaline Phosphatase 104 U/L (38-126); Anion Gap 8 mmol/L; Blood Urea Nitrogen 12 mg/dL (9-20); Calcium 9.7 mg/dL (8.4-10.2); Carbon Dioxide 29 mmol/L (22-30); Chloride 104 mmol/L (98-107); Glucose 114 mg/dL (74-99); Non-African American GFR(CKD) >90 (>60 ml/min/1.73 sqM); Potassium 4.5 mmol/L (3.5-5.1); Sodium 141 mmol/L (137-145); Total Bilirubin 0.7 mg/dL (0.2-1.3); Total Protein 8.1 g/dL (6.3-8.2)
[2019-02-28 11:47] VITALS: BP 114/56; PULSE 76; TEMP 97.9
--- NOTE | 2019-02-28 16:54 | P.DS ---
Providers Date of admission: 02/26/19 18:29 Expected date of discharge: 02/28/19 Attending physician: Anayeli Adamson Consults: 02/26/19 21:55 Consult Physician Routine Consulting Provider: Joana Monae Consult Reason/Comments: Seizures Do you want consulting provider notified?: Yes Primary care physician: Stated None Hospital Course: Final diagnosis Acute seizure disorder with breakthrough seizures History of seizure disorder Anemia, normocytic, anemia of undetermined etiology Hyponatremia Increased AST and ALT, possibly chronic hepatitis C History of hepatitis C History of traumatic brain bleed History of tonsillectomy history of anxiety, depression History of nicotine dependence History of THC use History of heroin use Discharge disposition Patient is being discharged in a stable condition with guarded prognosis to home and will follow up with neurology Dr. Mckeon in the outpatient setting as scheduled. Patient currently does not have a primary care provider and re sources for Dr. De Los Santos were provided. Patient will follow-up with Dr. De Los Santos in the outpatient setting upon discharge. Total time taken is 35 minutes. History of present illness This is a 23-year-old male was recently admitted with recurrent seizures and witnessed seizures and was being closely monitored. Neurology was following. Patient will be continued on Keppra 1500 mg twice daily and will follow-up with neurology in the outpatient setting as discussed and scheduled next week. Patient states that he will follow-up with neurology as he was recently incarcerated and ran out of his medication and has no primary care provider. Discussed at length the importance of being compliant with medications and refraining from any drug use. Patient will need repeat labs in 2-3 days to monitor liver functions as they were elevated during hospitalization. Currently patient's condition is stable with no seizure activity and will be discharged today. Guarded prognosis. On exam vital signs are stable. This 97.9F, pulse is 76, respirations are 16, blood pressure is 114/56, oxygen saturation is 99% on room air. Cardio S1, S2 are present. Respiratory system shows clear to auscultation no wheezing or crackles noted. Abdomen is soft and nontender. Nervous system shows no focal deficits. Please refer to medication reconciliation sheet for a list of medications. Patient Condition at Discharge: Fair Plan - Discharge Summary Discharge Rx Participant: No New Discharge Prescriptions: New levETIRAcetam [Keppra] 1,500 mg PO Q12HR 30 Days #60 tab Discontinued levETIRAcetam [Keppra] 1,000 mg PO BID Discharge Medication List levETIRAcetam [Keppra] 1,500 mg PO Q12HR 30 Days #60 tab 02/28/19 [Rx] Follow up Appointment(s)/Referral(s): Gemini De Los Santos MD [REFERRING] - 1 Week (Patient to call Dr. De Los Santos's office to [facility] follow up appointment. The office has questions for the patient. ) Alyce Mckeon MD [STAFF PHYSICIAN] - 03/07/19 10:00 am Ambulatory/Diagnostic Orders: ALT [LAB.AMB] Time Frame: 3 Days, Location: None Selected AST [LAB.AMB] Time Frame: 3 Days, Location: None Selected Patient Instructions/Handouts: Levetiracetam (By mouth), New-Onset Seizure in Adults (DC) Activity/Diet/Wound Care/Special Instructions: activity limited until follow up continue current diet avoid tobacco, alcohol, and drug use Discharge Disposition: HOME SELF-CARE
--- NOTE | 2019-02-28 23:29 | EEG ---
ELECTROENCEPHALOGRAM REPORT DATE OF PROCEDURE: 02/27/2019 ELECTROENCEPHALOGRAM (EEG) REPORT: TECHNIQUE: A routine 18-channel EEG was performed with video using the 10/20 international electrode placement system. HISTORY: Seizures. CURRENT MEDICATIONS: Ativan, Keppra, aspirin, nicotine patch. STUDY DURATION: 26 minutes. FINDINGS: Please note that a mild excess of beta frequency activity was noted, this is not epileptiform in nature and may in part be due to medication effect. BACKGROUND: The background activity consisted of 9 to 10 Hz rhythmic waveforms symmetrically distributed over both posterior quadrants. ACTIVATION: Hyperventilation: Induced mild physiological slowing. Photic stimulation: Symmetric driving seen. Sleep: Stages I and II sleep noted. ABNORMALITIES: None. IMPRESSION: Normal EEG. No epileptiform activity was present. No seizures were recorded. MMODL / IJN: [id number] / MTDD
== END 2019-02-28 12:50 | disposition home or self-care (01) ==
LOC: EC 16:59 → 3NMEDONC 18:29
PROVIDERS: ADMIT Hospitalist; ATTEND Hospitalist
DX: G40.409 Other generalized epilepsy and epileptic syndromes, not intractable, without status epilepticus (principal); D64.9 Anemia, unspecified; E87.1 Hypo-osmolality and hyponatremia; R74.0 Nonspecific elevation of levels of transaminase and lactic acid dehydrogenase [LDH]; I69.198 Other sequelae of nontraumatic intracerebral hemorrhage; G93.89 Other specified disorders of brain; Z87.820 Personal history of traumatic brain injury; F41.9 Anxiety disorder, unspecified; F32.9 Major depressive disorder, single episode, unspecified; F17.200 Nicotine dependence, unspecified, uncomplicated; F12.10 Cannabis abuse, uncomplicated; F11.20 Opioid dependence, uncomplicated; M19.90 Unspecified osteoarthritis, unspecified site; Z79.899 Other long term (current) drug therapy; Z79.82 Long term (current) use of aspirin; Z86.19 Personal history of other infectious and parasitic diseases; Z98.890 Other specified postprocedural states; Z90.89 Acquired absence of other organs; Z87.81 Personal history of (healed) traumatic fracture; E16.2 Hypoglycemia, unspecified; Z81.8 Family history of other mental and behavioral disorders
CPT/HCPCS: 96361 ×3; 96365; 96366; 96375; 99285; 36415; 95816; 93005; 80053 ×2; 80074; 80177; 85025; 81003; 80306; 83520; G0378 ×3; G0480 ×2; S4990 ×2; J2060; J1953 ×2; 80320; 80329

== ENCOUNTER 2019-04-01 18:14 | Emergency (ER) | payer OTHER ==
[2019-04-01 18:23] VITALS: TEMP 97.4
--- NOTE | 2019-04-01 19:56 | ED ---
Seizure HPI - General Chief Complaint: Seizure Stated Complaint: Seizure Time Seen by Provider: 04/01/19 19:04 Source: patient, RN notes reviewed, old records reviewed Mode of arrival: ambulatory Limitations: no limitations - History of Present Illness Initial Comments: This is a 23-year-old male here for evaluation. Patient presents today with seizure history of seizure epileptic seizures in recurrent seizures. Patient states his medications for about a day and a half stool admits to noncompliance. Today's headache or head injury neurological complaint. Patient here for medication refill. MD Complaint: seizure -: minutes(s) Description of Episode: loss of consciousness, tonic-clonic movement -: second(s) Witnessed: yes - by bystander Trauma: No Seizure History: known seizure disorder Place: home Possible Precipitating Event: none Associated Symptoms: denies other symptoms Treatments Prior to Arrival: none - Related Data Previous Rx's Medication Instructions Recorded levETIRAcetam [Keppra] 1,500 mg PO Q12HR 30 Days #60 tab 02/28/19 levETIRAcetam [Keppra] 750 mg PO Q12HR #60 tab 04/01/19 Allergies Allergy/AdvReac Type Severity Reaction Status Date / Time No Known Allergies Allergy Verified 04/01/19 18:23 Review of Systems ROS Statement: Those systems with pertinent positive or pertinent negative responses have been documented in the HPI. ROS Other: All systems not noted in ROS Statement are negative. Past Medical History Past Medical History: Seizure Disorder Additional Past Medical History / Comment(s): Hepatitis C. 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 History of Any Multi-Drug Resistant Organisms: None Reported Past Surgical History: Orthopedic Surgery, Tonsillectomy Additional Past Surgical History / Comment(s): Patient had right side jaw repair with a plate. Left arm repair due to a compound fracture in Past Anesthesia/Blood Transfusion Reactions: No Reported Reaction Past Psychological History: Anxiety, Depression Smoking Status: Current every day smoker Past Alcohol Use History: Occasional Past Drug Use History: Heroin, Marijuana - Past Family History Father Family Medical History: No Reported History Mother Additional Family Medical History / Comment(s): Depression, Bipolar, ADD/ADHD Sister(s) Family Medical History: No Reported History Brother(s) Family Medical History: No Reported History General Exam Limitations: no limitations General appearance: alert, in no apparent distress, anxious Head exam: Present: atraumatic, normocephalic, normal inspection Eye exam: Present: normal appearance, PERRL, EOMI. Absent: scleral icterus, conjunctival injection, periorbital swelling ENT exam: Present: normal exam, mucous membranes moist Neck exam: Present: normal inspection. Absent: tenderness, meningismus, lymphadenopathy Respiratory exam: Present: normal lung sounds bilaterally. Absent: respiratory distress, wheezes, rales, rhonchi, stridor Cardiovascular Exam: Present: regular rate, normal rhythm, normal heart sounds. Absent: systolic murmur, diastolic murmur, rubs, gallop, clicks GI/Abdominal exam: Present: soft, normal bowel sounds. Absent: distended, tenderness, guarding, rebound, rigid Extremities exam: Present: normal inspection, full ROM, normal capillary refill. Absent: tenderness, pedal edema, joint swelling, calf tenderness Back exam: Present: normal inspection Neurological exam: Present: alert, oriented X3, CN II-XII intact Psychiatric exam: Present: normal affect, normal mood Skin exam: Present: warm, dry, intact, normal color. Absent: rash Course Vital Signs 04/01/19 18:19 Temperature 97.4 F L Pulse Rate 109 H Respiratory 18 Rate Blood Pressure 138/92 O2 Sat by Pulse 100 Oximetry - Reevaluation(s) Reevaluation #1: 04/01/19 19:55 Medical records reviewed Reevaluation #2: 04/01/19 19:55 no Recurrent seizures here in the ER Medical Decision Making - Medical Decision Making 23 male recurrent seizure we'll give medication refill given a dose here in the ER of his normal daily couple patient can be discharged home with no complaints currently Disposition Clinical Impression: Epileptic seizure, generalized, Seizure disorder, Medication refill Disposition: HOME SELF-CARE Condition: Good Instructions (If sedation given, give patient instructions): Recurrent Seizures in Adults (ED) Prescriptions: levETIRAcetam [Keppra] 750 mg PO Q12HR #60 tab Is patient prescribed a controlled substance at d/c from ED?: No Referrals: None,Stated [Primary Care Provider] - 1-2 days
[2019-04-01 20:14] VITALS: BP 128/98; PULSE 90; RESP 17
== END 2019-04-01 20:08 | disposition home or self-care (01) ==
LOC: EC 18:14
DX: G40.409 Other generalized epilepsy and epileptic syndromes, not intractable, without status epilepticus (principal); Z76.0 Encounter for issue of repeat prescription; F17.200 Nicotine dependence, unspecified, uncomplicated; Z91.19 Patient's noncompliance with other medical treatment and regimen
CPT/HCPCS: 99284

== ENCOUNTER 2019-04-21 15:11 | Emergency (ER) | payer OTHER ==
[2019-04-21 15:17] VITALS: BP 103/61; PULSE 61; RESP 18; TEMP 99.1
[2019-04-21] MEDS ORDERED: levETIRAcetam 500 MG TAB PO STA (15:25)
--- NOTE | 2019-04-21 15:28 | ED ---
General Adult HPI - General Chief complaint: Recheck/Abnormal Lab/Rx Stated complaint: Med refill Time Seen by Provider: 04/21/19 15:23 Source: patient Mode of arrival: ambulatory Limitations: no limitations - History of Present Illness Initial comments: Patient is a 23-year-old male with history of epilepsy presenting to the emergency department with a chief complaint of medication refill. Patient states he does not have a reliable transportation left his prescription for Keppra 1000 mg twice a day had his friend's house. Patient states he has not taken any of the medication today. Patient denies any seizures today. 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 - Related Data Previous Rx's Medication Instructions Recorded levETIRAcetam [Keppra] 1,500 mg PO Q12HR 30 Days #60 tab 02/28/19 levETIRAcetam [Keppra] 750 mg PO Q12HR #60 tab 04/01/19 levETIRAcetam [Keppra] 1,000 mg PO Q12HR #10 tab 04/21/19 Allergies Allergy/AdvReac Type Severity Reaction Status Date / Time No Known Allergies Allergy Verified 04/21/19 15:14 Review of Systems ROS Statement: Those systems with pertinent positive or pertinent negative responses have been documented in the HPI. ROS Other: All systems not noted in ROS Statement are negative. Past Medical History Past Medical History: Seizure Disorder Additional Past Medical History / Comment(s): Hepatitis C. 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 History of Any Multi-Drug Resistant Organisms: None Reported Past Surgical History: Orthopedic Surgery, Tonsillectomy Additional Past Surgical History / Comment(s): Patient had right side jaw repair with a plate. Left arm repair due to a compound fracture in Past Anesthesia/Blood Transfusion Reactions: No Reported Reaction Past Psychological History: Anxiety, Depression Smoking Status: Current every day smoker Past Alcohol Use History: Occasional Past Drug Use History: None Reported, Heroin, Marijuana - Past Family History Father Family Medical History: No Reported History Mother Additional Family Medical History / Comment(s): Depression, Bipolar, ADD/ADHD Sister(s) Family Medical History: No Reported History Brother(s) Family Medical History: No Reported History General Exam Limitations: no limitations General appearance: alert, in no apparent distress Head exam: Present: atraumatic, normocephalic, normal inspection Eye exam: Present: normal appearance Pupils: Present: normal accommodation ENT exam: Present: normal exam, mucous membranes moist Neck exam: Present: normal inspection, full ROM Respiratory exam: Present: normal lung sounds bilaterally Cardiovascular Exam: Present: regular rate, normal rhythm, normal heart sounds Extremities exam: Present: normal inspection, full ROM Back exam: Present: normal inspection, full ROM Neurological exam: Present: alert, oriented X3, normal gait Psychiatric exam: Present: normal affect, normal mood Skin exam: Present: warm, dry, intact, normal color Course Vital Signs 04/21/19 15:14 Temperature 99.1 F Pulse Rate 61 Respiratory 18 Rate Blood Pressure 103/61 O2 Sat by Pulse 84 L Oximetry Medical Decision Making - Medical Decision Making Patient is a 23-year-old male with history of epilepsy presenting to the emergency department with a chief complaint of medication refill. Patient does not have reliable transportation and left his prescription for Keppra to his friend's house. Patient takes 1 g of Keppra twice a day. Patient was given a single dose in the ED. Patient will be discharged with a 5 day prescription of Keppra. Patient has not had any seizures today. Patient advised to follow-up with primary care. Strict return parameters were thoroughly discussed with patient was understanding and agreeable. Case discussed with physician. Disposition Clinical Impression: Encounter for medication refill Disposition: HOME SELF-CARE Condition: Stable Instructions (If sedation given, give patient instructions): Levetiracetam (By mouth) Additional Instructions: Please take prescribed medication as directed. Please follow up with primary care. Please return to emergency department if symptoms worsen. Prescriptions: levETIRAcetam [Keppra] 1,000 mg PO Q12HR #10 tab Is patient prescribed a controlled substance at d/c from ED?: No Referrals: None,Stated [Primary Care Provider] - 1-2 days Time of Disposition: 15:27
== END 2019-04-21 15:52 | disposition home or self-care (01) ==
LOC: EC 15:11
DX: Z76.0 Encounter for issue of repeat prescription (principal); F17.200 Nicotine dependence, unspecified, uncomplicated
CPT/HCPCS: 99281

== ENCOUNTER 2019-04-29 02:06 | Emergency (ER) | payer BC, OTHER ==
[2019-04-29 02:13] VITALS: BP 126/83; PULSE 96; RESP 18; TEMP 97.7
[2019-04-29] MEDS ORDERED: SODIUM CHLORIDE 0.9% 1,000 ML IV ONE (02:22)
[2019-04-29] MEDS ORDERED: levETIRAcetam IV 1,000 MG in SALINE 1 100ML.BAG IVPB ONE (02:45)
[2019-04-29 03:23] LABS: Basophils # (A) 0.1 k/uL (0-0.2); Basophils % (A) 1 %; Eosinophils % (A) 1 %; HCT 45.1 % (39.0-53.0); HGB 14.5 gm/dL (13.0-17.5); Lymphocytes # (A) 1.5 k/uL (1.0-4.8); Lymphocytes % (A) 22 %; MCH 28.9 pg (25.0-35.0); MCHC 32.2 g/dL (31.0-37.0); MCV 89.8 fL (80.0-100.0); Monocytes # (A) 0.3 k/uL (0-1.0); Monocytes % (A) 5 %; Neutrophils % (A) 70 %; Platelet Count 330 k/uL (150-450); RBC 5.02 m/uL (4.30-5.90); RDW 12.4 % (11.5-15.5); WBC 7.2 k/uL (3.8-10.6)
[2019-04-29 03:30] LABS: ALT 17 U/L (4-49); AST 35 U/L (17-59); African American GFR (CKD) >90 (>60 ml/min/1.73 sqM); Albumin 5.3 g/dL (3.5-5.0); Alkaline Phosphatase 72 U/L (38-126); Anion Gap 13 mmol/L; Blood Urea Nitrogen 23 mg/dL (9-20); Calcium 10.4 mg/dL (8.4-10.2); Carbon Dioxide 24 mmol/L (22-30); Chloride 104 mmol/L (98-107); Glucose 84 mg/dL (74-99); Non-African American GFR(CKD) >90 (>60 ml/min/1.73 sqM); Potassium 4.6 mmol/L (3.5-5.1); Sodium 141 mmol/L (137-145); Total Bilirubin 1.1 mg/dL (0.2-1.3); Total Protein 9.6 g/dL (6.3-8.2)
[2019-04-29 03:47] LABS: Appearance,Urine Clear (Clear); Bilirubin,Urine Negative (Negative); Blood,Urine Negative (Negative); Color,Urine Yellow; Glucose,Urine (UA) Negative (Negative); Ketones,Urine 2+ (Negative); Leukocyte Esterase,Urine Negative (Negative); Nitrite,Urine Negative (Negative); PH, Urine 5.5 (5.0-8.0); Protein,Urine Trace (Negative); Specific Gravity,Urine 1.033 (1.001-1.035)
[2019-04-29 04:01] LABS: Amphetamine Screen,Urine Detected (NotDetected); Barbiturate Screen,Urine Not Detected (NotDetected); Benzodiazepines Screen,Urine Not Detected (NotDetected); Cocaine Screen,Urine Not Detected (NotDetected); Methadone Screen, Urine Not Detected (NotDetected); Opiate Screen,Urine Not Detected (NotDetected); Oxycodone Screen, Urine Not Detected (NotDetected); Phencyclidine Screen,Urine Not Detected (NotDetected); Tricyclic Antidepressant,Urine Not Detected (NotDetected); Urn Cannabinoid Scrn Detected (NotDetected)
--- NOTE | 2019-04-29 04:11 | ED ---
Seizure HPI - General Chief Complaint: Seizure Stated Complaint: Seizure Time Seen by Provider: 04/29/19 02:14 Source: patient, EMS Mode of arrival: EMS - History of Present Illness Initial Comments: 23-year-old male patient presents to the emergency department today for evaluation after having a seizure. Patient states his been out of his seizure medication for the last 24 hours. Patient states that he did bite his lip but denies any tongue biting. Denies loss of bowel or bladder control. Patient does have a history of seizures. He takes Keppra. Does have an appointment with his neurologist on Tuesday. Patient states he was with his girlfriend when he felt like a seizure is coming on when he woke his girlfriend was gone, no one who witnessed the seizure is present. He denies any recent illness. Patient denies any recent rash, fever, chills, shortness breath, chest pain, abdominal pain, nausea, vomiting, diarrhea, constipation, back pain, numbness, tingling, dizziness, weakness, hematuria, dysuria, urinary urgency, urinary frequency, visual changes, or any other complaints. - Related Data Previous Rx's Medication Instructions Recorded levETIRAcetam [Keppra] 1,500 mg PO Q12HR 30 Days #60 tab 02/28/19 levETIRAcetam [Keppra] 750 mg PO Q12HR #60 tab 04/01/19 levETIRAcetam [Keppra] 1,000 mg PO Q12HR #10 tab 04/21/19 levETIRAcetam [Keppra] 1,000 mg PO Q12HR #14 tab 04/29/19 Allergies Allergy/AdvReac Type Severity Reaction Status Date / Time No Known Allergies Allergy Verified 04/21/19 15:14 Review of Systems ROS Statement: Those systems with pertinent positive or pertinent negative responses have been documented in the HPI. ROS Other: All systems not noted in ROS Statement are negative. Past Medical History Past Medical History: Seizure Disorder Additional Past Medical History / Comment(s): Hepatitis C. 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 History of Any Multi-Drug Resistant Organisms: None Reported Past Surgical History: Orthopedic Surgery, Tonsillectomy Additional Past Surgical History / Comment(s): Patient had right side jaw repair with a plate. 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 Vital signs upon presentation are temperature 97.7F, pulse 96, respirations 18 blood pressure 126/83, pulse ox 99% on room air.) Eye exam: Present: normal appearance, PERRL, EOMI. Absent: scleral icterus, conjunctival injection, periorbital swelling ENT exam: Present: normal exam, normal oropharynx, mucous membranes moist Respiratory exam: Present: normal lung sounds bilaterally. Absent: respiratory distress, wheezes, rales, rhonchi, stridor Cardiovascular Exam: Present: regular rate, normal rhythm, normal heart sounds. Absent: systolic murmur, diastolic murmur, rubs, gallop, clicks GI/Abdominal exam: Present: soft, normal bowel sounds. Absent: distended, tenderness, guarding, rebound, rigid Neurological exam: Present: alert, oriented X3, CN II-XII intact, other (Strength in all 4 extremities is 5/5.) Psychiatric exam: Present: normal affect, normal mood Skin exam: Present: warm, dry, intact, normal color. Absent: rash Course Vital Signs 04/29/19 02:08 Temperature 97.7 F Pulse Rate 96 Respiratory 18 Rate Blood Pressure 126/83 O2 Sat by Pulse 99 Oximetry Medical Decision Making - Medical Decision Making 23-year-old male patient presents to the emergency department today for evaluation after having a seizure. Physical examination is unremarkable. She is neurologically intact with no focal deficits. Labs reviewed and are unremarkable. Her levels pending. We did give a loading dose of Keppra here. Be discharged with a prescription for Keppra for 1 week. He does have an appointment with his neurologist on Tuesday. He is instructed to follow-up with his primary care physician for recheck in 1-2 days Return parameters were discussed in detail. She verbalizes understanding and agrees with this plan. - Lab Data Result diagrams: 04/29/19 02:31 04/29/19 02:31 Lab Results 04/29/19 04/29/19 04/29/19 Range/Units 02:31 02:31 03:34 WBC 7.2 (3.8-10.6) k/uL RBC 5.02 (4.30-5.90) m/uL Hgb 14.5 (13.0-17.5) gm/dL Hct 45.1 (39.0-53.0) % MCV 89.8 (80.0-100.0) fL MCH 28.9 (25.0-35.0) pg MCHC 32.2 (31.0-37.0) g/dL RDW 12.4 (11.5-15.5) % Plt Count 330 (150-450) k/uL Neutrophils % 70 % Lymphocytes % 22 % Monocytes % 5 % Eosinophils % 1 % Basophils % 1 % Neutrophils # 5.0 (1.3-7.7) k/uL Lymphocytes # 1.5 (1.0-4.8) k/uL Monocytes # 0.3 (0-1.0) k/uL Eosinophils # 0.0 (0-0.7) k/uL Basophils # 0.1 (0-0.2) k/uL Sodium 141 (137-145) mmol/L Potassium 4.6 (3.5-5.1) mmol/L Chloride 104 (98-107) mmol/L Carbon Dioxide 24 (22-30) mmol/L Anion Gap 13 mmol/L BUN 23 H (9-20) mg/dL Creatinine 1.12 (0.66-1.25) mg/dL Est GFR (CKD-EPI)AfAm >90 (>60 ml/min/1.73 sqM) Est GFR (CKD-EPI)NonAf >90 (>60 ml/min/1.73 sqM) Glucose 84 (74-99) mg/dL Calcium 10.4 H (8.4-10.2) mg/dL Total Bilirubin 1.1 (0.2-1.3) mg/dL AST 35 (17-59) U/L ALT 17 (4-49) U/L Alkaline Phosphatase 72 (38-126) U/L Total Protein 9.6 H (6.3-8.2) g/dL Albumin 5.3 H (3.5-5.0) g/dL Urine Color Yellow Urine Appearance Clear (Clear) Urine pH 5.5 (5.0-8.0) Ur Specific [place] 1.033 (1.001-1.035) Urine Protein Trace H (Negative) Urine Glucose (UA) Negative (Negative) Urine Ketones 2+ H (Negative) Urine Blood Negative (Negative) Urine Nitrite Negative (Negative) Urine Bilirubin Negative (Negative) Urine Urobilinogen 2.0 (<2.0) mg/dL Ur Leukocyte Esterase Negative (Negative) Urine Opiates Screen Not Detected (NotDetected) Ur Oxycodone Screen Not Detected (NotDetected) Urine Methadone Screen Not Detected (NotDetected) Ur Propoxyphene Screen Not Detected (NotDetected) Ur Barbiturates Screen Not Detected (NotDetected) U Tricyclic Antidepress Not Detected (NotDetected) Ur Phencyclidine Scrn Not Detected (NotDetected) Ur Amphetamines Screen Detected H (NotDetected) U Methamphetamines Scrn Detected H (NotDetected) U Benzodiazepines Scrn Not Detected (NotDetected) Urine Cocaine Screen Not Detected (NotDetected) U Marijuana (THC) Screen Detected H (NotDetected) Disposition Clinical Impression: Seizure Disposition: HOME SELF-CARE Condition: Good Instructions (If sedation given, give patient instructions): Recurrent Seizures in Adults (ED) Additional Instructions: Follow up with her neurologist on Tuesday as you have planned. Take medications as directed. Follow-up with your primary care physician for recheck in 1-2 days. Return to the emergency department for any new, worsening, or concerning symptoms. Prescriptions: levETIRAcetam [Keppra] 1,000 mg PO Q12HR #14 tab Is patient prescribed a controlled substance at d/c from ED?: No Referrals: None,Stated [Primary Care Provider] - 1-2 days Time of Disposition: 04:11
== END 2019-04-29 04:57 | disposition home or self-care (01) ==
LOC: EC 02:06
DX: R56.9 Unspecified convulsions (principal); T42.6X6A Underdosing of other antiepileptic and sedative-hypnotic drugs, initial encounter; Z91.138 Patient's unintentional underdosing of medication regimen for other reason; Z76.0 Encounter for issue of repeat prescription; F17.200 Nicotine dependence, unspecified, uncomplicated
CPT/HCPCS: 36415; 80053; 80177; 85025; 81003; 80306; 99284; 96374; 96361; J1953

== ENCOUNTER 2019-07-20 18:55 | Emergency (ER) | payer BC, OTHER ==
[2019-07-20 19:13] VITALS: BP 116/79; PULSE 110; RESP 18; TEMP 98.1
[2019-07-20] MEDS ORDERED: levETIRAcetam 500 MG TAB PO STA (19:13)
--- NOTE | 2019-07-20 19:45 | ED ---
General Adult HPI - General Chief complaint: Recheck/Abnormal Lab/Rx Stated complaint: seizure med refill Time Seen by Provider: 07/20/19 19:14 Source: patient, RN notes reviewed Mode of arrival: ambulatory Limitations: no limitations - History of Present Illness Initial comments: 23-year-old male presents to the emergency department for medication refill. Patient states that he takes Keppra 1000 mg twice daily for a seizure disorder. States that he last had this this morning. She has been in skilled nursing for the past few months and they have been refilling his prescription for him there but did not give him a refill when he was released a few days ago. States he could not get in to see his neurologist who is from [place]. He last saw her in February. Patient states he is here for a medication refill until he can get into his neurologist. He denies any recent seizure stating his last one was several months ago. States seizures are controlled. Denies any other complaints.Patient has no other complaints at this time including shortness of breath, chest pain, abdominal pain, nausea or vomiting, headache, or visual changes. - Related Data Previous Rx's Medication Instructions Recorded levETIRAcetam [Keppra] 1,000 mg PO Q12HR #14 tab 04/29/19 levETIRAcetam [Keppra] 1,000 mg PO Q12HR 30 Days #60 tab 07/20/19 Allergies Allergy/AdvReac Type Severity Reaction Status Date / Time No Known Allergies Allergy Verified 07/20/19 19:13 Review of Systems ROS Statement: Those systems with pertinent positive or pertinent negative responses have been documented in the HPI. ROS Other: All systems not noted in ROS Statement are negative. Past Medical History Past Medical History: Seizure Disorder Additional Past Medical History / Comment(s): Hepatitis C. 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 former herion user History of Any Multi-Drug Resistant Organisms: None Reported Past Surgical History: Orthopedic Surgery, Tonsillectomy Additional Past Surgical History / Comment(s): Patient had right side jaw repair with a plate. Left arm repair due to a compound fracture in Past Anesthesia/Blood Transfusion Reactions: No Reported Reaction Past Psychological History: Anxiety, Depression Smoking Status: Current every day smoker Past Alcohol Use History: Occasional Past Drug Use History: None Reported - Past Family History Father Family Medical History: No Reported History Mother Additional Family Medical History / Comment(s): Depression, Bipolar, ADD/ADHD Sister(s) Family Medical History: No Reported History Brother(s) Family Medical History: No Reported History General Exam Limitations: no limitations General appearance: alert, in no apparent distress Head exam: Present: atraumatic, normocephalic, normal inspection Eye exam: Present: normal appearance, PERRL, EOMI. Absent: scleral icterus, conjunctival injection, periorbital swelling ENT exam: Present: normal exam, mucous membranes moist Neck exam: Present: normal inspection, full ROM. Absent: tenderness, meningismus, lymphadenopathy Respiratory exam: Present: normal lung sounds bilaterally. Absent: respiratory distress, wheezes, rales, rhonchi, stridor Cardiovascular Exam: Present: regular rate, normal rhythm, normal heart sounds. Absent: systolic murmur, diastolic murmur, rubs, gallop, clicks Neurological exam: Present: alert, oriented X3 Course Vital Signs 07/20/19 19:10 Temperature 98.1 F Pulse Rate 110 H Respiratory 18 Rate Blood Pressure 116/79 O2 Sat by Pulse 98 Oximetry Medical Decision Making - Medical Decision Making Medications were verified by pharmacy. Patient last received refill in April which is consistent with his being incarcerated from April until a few days ago. Patient will be given a one-month prescription to refill which should give him time to see his neurologist. Discussed that he will need to do this in order to receive his next refill as it will not be through the emergency department given this is not an appropriate use of emergency department resources. He is aware of this and in agreement. He will return for any worsening symptoms. Disposition Clinical Impression: Encounter for medication refill Disposition: HOME SELF-CARE Condition: Good Instructions (If sedation given, give patient instructions): Medicine Refill (ED) Additional Instructions: Please follow-up with your neurologist for further med refills. Prescriptions: levETIRAcetam [Keppra] 1,000 mg PO Q12HR 30 Days #60 tab Is patient prescribed a controlled substance at d/c from ED?: No Referrals: Yuniel Madison MD [STAFF PHYSICIAN] - 1-2 days Time of Disposition: 19:43
== END 2019-07-20 20:05 | disposition home or self-care (01) ==
LOC: EC 18:55
DX: Z76.0 Encounter for issue of repeat prescription (principal); F17.200 Nicotine dependence, unspecified, uncomplicated
CPT/HCPCS: 99281

== ENCOUNTER 2019-08-21 22:42 | Emergency (ER) | payer BC, OTHER ==
[2019-08-22] MEDS ORDERED: levETIRAcetam 500 MG TAB PO STA (00:06)
--- NOTE | 2019-08-22 00:22 | ED ---
General Adult HPI - General Chief complaint: Recheck/Abnormal Lab/Rx Stated complaint: Med Refill Time Seen by Provider: 08/21/19 23:08 Source: patient, RN notes reviewed, old records reviewed Mode of arrival: ambulatory Limitations: no limitations - History of Present Illness Initial comments: 23-year-old male patient past history seizure disorder presents for chief complaint medication refill. Patient reports that he takes Keppra 1000 mg twice a day. Reports that he has not had a seizure in over 3 months. States that his neurologist retired and he has not yet gotten established with a primary care provider due to the coronavirus. Pt is requesting medication refill. Denies any acute complaints at this time. Systemic: Pt denies fatigue, fever/chills, rash. Pt denies weakness, night sweats, weight loss. Neuro: Pt denies headache, visual disturbances, syncope or pre-syncope. HEENT: Pt denies ocular discharge or irritation, otalgia, rhinorrhea, pharyngitis or notable lymphadenopathy. Cardiopulmonary: Pt denies chest pain, SOB, heart palpitations, dyspnea on exertion. Abdominal/GI: Pt denies abdominal pain, n/v/d. : Pt denies dysuria, burning w/ urination, frequency/urgency. Denies new onset urinary or bowel incontinence. MSK: Pt denies myalgia, loss of strength or function in extremities. Neuro: Pt denies new onset weakness, paresthesias. - Related Data Previous Rx's Medication Instructions Recorded levETIRAcetam [Keppra] 1,000 mg PO Q12HR #14 tab 04/29/19 levETIRAcetam [Keppra] 1,000 mg PO Q12HR 30 Days #60 tab 07/20/19 levETIRAcetam [Keppra] 1,000 mg PO Q12HR 30 Days #60 tab 08/22/19 Allergies Allergy/AdvReac Type Severity Reaction Status Date / Time No Known Allergies Allergy Verified 08/21/19 22:50 Review of Systems ROS Statement: Those systems with pertinent positive or pertinent negative responses have been documented in the HPI. ROS Other: All systems not noted in ROS Statement are negative. Past Medical History Past Medical History: Seizure Disorder Additional Past Medical History / Comment(s): Hepatitis C. 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 former herion user History of Any Multi-Drug Resistant Organisms: None Reported Past Surgical History: Orthopedic Surgery, Tonsillectomy Additional Past Surgical History / Comment(s): Patient had right side jaw repair with a plate. Left arm repair due to a compound fracture in Past Anesthesia/Blood Transfusion Reactions: No Reported Reaction Past Psychological History: Anxiety, Depression Smoking Status: Current every day smoker Past Alcohol Use History: Occasional Past Drug Use History: None Reported - Past Family History Father Family Medical History: No Reported History Mother Additional Family Medical History / Comment(s): Depression, Bipolar, ADD/ADHD Sister(s) Family Medical History: No Reported History Brother(s) Family Medical History: No Reported History General Exam - General Exam Comments Initial Comments: Constitutional: NAD, AOX3, Pt has pleasant affect. HEENT: NC/AT, trachea midline, External ears appear normal, without discharge. Mucous membranes moist. EOM intact. There is no scleral icterus. No pallor noted. Cardiopulmonary: RRR, no murmurs, rubs or gallops, no JVD noted. Lungs CTAB in anterior and posterior patel. No peripheral edema. Abdominal exam: Abdomen soft and non-distended. Abdomen non-tender to palpation in all 4 quadrants. Bowel sounds active in LLQ. No hepatosplenomegaly. No ecchymosis Neuro: CN II-XII grossly intact. No nuchal rigidity. No raccon eyes, No cervical spinal tenderness. MSK: Full active ROM in upper and lower extremities, 5/5 stregnth. Limitations: no limitations Course Vital Signs 08/21/19 08/21/19 22:48 23:14 Temperature 98 F 99.1 F Pulse Rate 101 H 105 H Respiratory 18 17 Rate Blood Pressure 142/84 126/81 O2 Sat by Pulse 98 100 Oximetry Medical Decision Making - Medical Decision Making 23-year-old male patient past history seizure disorder presents for chief complaint medication refill. Patient reports that he takes Keppra 1000 mg twice a day. Reports that he has not had a seizure in over 3 months. States that his neurologist retired and he has not yet gotten established with a primary care provider due to the coronavirus. Pt is requesting medication refill. Denies any acute complaints at this time. Patient vital signs are stable, afebrile. Physical exam did not display acute pathology. Pt administered night time dose of medication, medication refilled. Pt given referrals to local PCP's and neurologists. Case discussed with Dr. Pina. Disposition Clinical Impression: Encounter for medication refill Disposition: HOME SELF-CARE Condition: Stable Instructions (If sedation given, give patient instructions): Medicine Refill (ED) Additional Instructions: Follow-up with primary care provider and neurologist tomorrow. Return to ER if condition worsens. Prescriptions: levETIRAcetam [Keppra] 1,000 mg PO Q12HR 30 Days #60 tab Is patient prescribed a controlled substance at d/c from ED?: No Referrals: None,Stated [Primary Care Provider] - 1-2 days Brenden Lees DO [STAFF PHYSICIAN] - 1-2 days Lalo Lozoya MD [Medical Doctor] - 1-2 days Mojgan Poe MD [REFERRING] - 1-2 days Kirt Li MD [STAFF PHYSICIAN] - 1-2 days Magi Soriano MD [STAFF PHYSICIAN] - 1-2 days Tello Laws Jr, DO [Doctor of Osteopathic Medicine] - 1-2 days Yuniel Ivan MD [STAFF PHYSICIAN] - 1-2 days Vineet Pulliam MD [STAFF PHYSICIAN] - 1-2 days Shant Adams MD [STAFF PHYSICIAN] - 1-2 days Brigid Mckenna MD [STAFF PHYSICIAN] - 1-2 days Shahnaz Sanchez DO [REFERRING] - 1-2 days Jose Carlos Cadet III, MD [STAFF PHYSICIAN] - 1-2 days [facility] [NON-STAFF] - 1-2 days
--- NOTE | 2019-08-22 00:25 | ED ---
Disposition Clinical Impression: Encounter for medication refill Disposition: HOME SELF-CARE Condition: Stable Instructions (If sedation given, give patient instructions): Medicine Refill (ED) Additional Instructions: Follow-up with primary care provider and neurologist tomorrow. Return to ER if condition worsens. Prescriptions: levETIRAcetam [Keppra] 1,000 mg PO Q12HR 30 Days #60 tab Is patient prescribed a controlled substance at d/c from ED?: No Referrals: Vineet uPlliam MD [STAFF PHYSICIAN] - 1-2 days Kirt Li MD [STAFF PHYSICIAN] - 1-2 days Magi Soriano MD [STAFF PHYSICIAN] - 1-2 days Tello Laws Jr, DO [Doctor of Osteopathic Medicine] - 1-2 days Jose Carlos Cadet III, MD [STAFF PHYSICIAN] - 1-2 days Mojgan Poe MD [REFERRING] - 1-2 days Brigid Mckenna MD [STAFF PHYSICIAN] - 1-2 days Yuniel Ivan MD [STAFF PHYSICIAN] - 1-2 days Shahnaz Sanchez DO [REFERRING] - 1-2 days Lalo Lozoya MD [Medical Doctor] - 1-2 days None,Stated [Primary Care Provider] - 1-2 days Shant Adams MD [STAFF PHYSICIAN] - 1-2 days [facility] [NON-STAFF] - 1-2 days Brenden Lees DO [STAFF PHYSICIAN] - 1-2 days Mendez Mckeon MD [REFERRING] - 1-2 days Alyce Mckeon MD [REFERRING] - 1-2 days
[2019-08-22 00:56] VITALS: BP 135/88; PULSE 82; RESP 15; TEMP 98.9
== END 2019-08-22 00:35 | disposition home or self-care (01) ==
LOC: EC 22:42
DX: Z76.0 Encounter for issue of repeat prescription (principal); G40.909 Epilepsy, unspecified, not intractable, without status epilepticus; F17.200 Nicotine dependence, unspecified, uncomplicated
CPT/HCPCS: 99282

== ENCOUNTER 2019-09-19 12:55 | Emergency (ER) | payer BC, OTHER ==
[2019-09-19 12:59] VITALS: BP 114/73; PULSE 78; RESP 16; TEMP 97.9
--- NOTE | 2019-09-19 13:06 | ED ---
General Adult HPI - General Chief complaint: Recheck/Abnormal Lab/Rx Stated complaint: seizure med refill Time Seen by Provider: 09/19/19 12:58 Source: patient, RN notes reviewed Mode of arrival: ambulatory Limitations: no limitations - History of Present Illness Initial comments: 23-year-old male presents emergency Department with chief complaint of needing medication refill. Patient has a history of seizures. Patient states he cannot follow-up PCP yet. Patient states that his been calling around. Patient takes Keppra 1000 mg twice a day. Patient has not had a recent seizure. Patient offers no other complaints. - Related Data Previous Rx's Medication Instructions Recorded levETIRAcetam [Keppra] 1,000 mg PO Q12HR #60 tab 09/19/19 Allergies Allergy/AdvReac Type Severity Reaction Status Date / Time No Known Allergies Allergy Verified 09/19/19 12:56 Review of Systems ROS Statement: Those systems with pertinent positive or pertinent negative responses have been documented in the HPI. ROS Other: All systems not noted in ROS Statement are negative. Past Medical History Past Medical History: Seizure Disorder Additional Past Medical History / Comment(s): Hepatitis C. 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 former herion user History of Any Multi-Drug Resistant Organisms: None Reported Past Surgical History: Orthopedic Surgery, Tonsillectomy Additional Past Surgical History / Comment(s): Patient had right side jaw repair with a plate. Left arm repair due to a compound fracture in Past Anesthesia/Blood Transfusion Reactions: No Reported Reaction Past Psychological History: Anxiety, Depression Smoking Status: Current every day smoker Past Alcohol Use History: Occasional Past Drug Use History: Marijuana - Past Family History Father Family Medical History: No Reported History Mother Additional Family Medical History / Comment(s): Depression, Bipolar, ADD/ADHD Sister(s) Family Medical History: No Reported History Brother(s) Family Medical History: No Reported History General Exam Limitations: no limitations General appearance: alert, in no apparent distress Head exam: Present: atraumatic, normocephalic, normal inspection Eye exam: Present: normal appearance, PERRL, EOMI. Absent: scleral icterus, conjunctival injection, periorbital swelling ENT exam: Present: normal exam, mucous membranes moist Neck exam: Present: normal inspection. Absent: tenderness, meningismus, lymphadenopathy Respiratory exam: Present: normal lung sounds bilaterally. Absent: respiratory distress, wheezes, rales, rhonchi, stridor Cardiovascular Exam: Present: regular rate, normal rhythm, normal heart sounds. Absent: systolic murmur, diastolic murmur, rubs, gallop, clicks GI/Abdominal exam: Present: soft, normal bowel sounds. Absent: distended, tenderness, guarding, rebound, rigid Course Vital Signs 09/19/19 12:56 Temperature 97.9 F Pulse Rate 78 Respiratory 16 Rate Blood Pressure 114/73 O2 Sat by Pulse 99 Oximetry Medical Decision Making - Medical Decision Making Patient advised that he needs to follow with PCP or neurologist as soon as possible understanding that he needs to be monitored for his Keppra and to have regular medication refills. Disposition Clinical Impression: Encounter for medication refill, History of seizure Disposition: HOME SELF-CARE Condition: Stable Instructions (If sedation given, give patient instructions): Recurrent Seizures in Adults (ED) Additional Instructions: Please return to the Emergency Department if symptoms worsen or any other concerns. Prescriptions: levETIRAcetam [Keppra] 1,000 mg PO Q12HR #60 tab Is patient prescribed a controlled substance at d/c from ED?: No Referrals: None,Stated [Primary Care Provider] - 1-2 days Gemini De Los Santos MD [REFERRING] - 1-2 days Brenden Lees DO [STAFF PHYSICIAN] - 1-2 days Mendez Mckeon MD [REFERRING] - 1-2 days Lalo Lozoya MD [Medical Doctor] - 1-2 days Time of Disposition: 13:05
== END 2019-09-19 13:17 | disposition home or self-care (01) ==
LOC: EC 12:55
DX: Z76.0 Encounter for issue of repeat prescription (principal); F17.200 Nicotine dependence, unspecified, uncomplicated; Z86.69 Personal history of other diseases of the nervous system and sense organs
CPT/HCPCS: 99281

== ENCOUNTER 2020-06-05 23:38 | Emergency (ER) | payer BC, OTHER ==
[2020-06-05 23:45] VITALS: PULSE 84; TEMP 97.6
--- NOTE | 2020-06-05 23:46 | ED ---
Recheck HPI - General Chief Complaint: Recheck/Abnormal Lab/Rx Stated Complaint: Med Refill Time Seen by Provider: 06/05/20 23:45 Source: patient Mode of arrival: ambulatory Limitations: no limitations - History of Present Illness Initial Comments: 24-year-old male presents to emergency department with a chief complaint of medication refill. Patient states he needs a dose of Keppra. Patient reports he was not able to get to a pharmacy tonight until his prescription for Keppra. States he needs his nightly dose. States he will fill out the prescription in the morning. States he has been seizure-free for approximately a year and half. He denies any other complaints. He takes thousand milligrams of Keppra twice a day. - Related Data Previous Rx's Medication Instructions Recorded levETIRAcetam [Keppra] 1,000 mg PO Q12HR #60 tab 09/19/19 Allergies Allergy/AdvReac Type Severity Reaction Status Date / Time No Known Allergies Allergy Verified 06/05/20 23:44 Review of Systems ROS Statement: Those systems with pertinent positive or pertinent negative responses have been documented in the HPI. ROS Other: All systems not noted in ROS Statement are negative. Past Medical History Past Medical History: Seizure Disorder Additional Past Medical History / Comment(s): Hepatitis C. 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 former herion user History of Any Multi-Drug Resistant Organisms: None Reported Past Surgical History: Orthopedic Surgery, Tonsillectomy Additional Past Surgical History / Comment(s): Patient had right side jaw repair with a plate. Left arm repair due to a compound fracture in Past Anesthesia/Blood Transfusion Reactions: No Reported Reaction Past Psychological History: Anxiety, Depression Smoking Status: Vaper Past Alcohol Use History: Occasional Past Drug Use History: Heroin, Marijuana - Past Family History Father Family Medical History: No Reported History Mother Additional Family Medical History / Comment(s): Depression, Bipolar, ADD/ADHD Sister(s) Family Medical History: No Reported History Brother(s) Family Medical History: No Reported History General Exam Limitations: no limitations General appearance: alert, in no apparent distress Head exam: Present: atraumatic, normocephalic, normal inspection Eye exam: Present: normal appearance, PERRL, EOMI Pupils: Present: normal accommodation ENT exam: Present: normal exam, normal oropharynx, mucous membranes moist Neck exam: Present: normal inspection, full ROM. Absent: tenderness, meningismus Respiratory exam: Present: normal lung sounds bilaterally. Absent: respiratory distress Cardiovascular Exam: Present: regular rate, normal rhythm, normal heart sounds Extremities exam: Present: normal inspection, full ROM, normal capillary refill. Absent: tenderness Back exam: Present: normal inspection, full ROM. Absent: tenderness Neurological exam: Present: alert, oriented X3 Psychiatric exam: Present: normal affect, normal mood Skin exam: Present: warm, dry, intact, normal color Course Vital Signs 06/05/20 23:41 Temperature 97.6 F Pulse Rate 84 Medical Decision Making - Medical Decision Making Patient needs his nightly dose of Keppra. Patient will be given 1 g of Keppra here. He will be has a prescription for the rest of the tablets that he will fill tomorrow. Return parameters discussed with patient was understanding and agreeable. Case discussed with Disposition Clinical Impression: Encounter for medication refill Disposition: HOME SELF-CARE Condition: Stable Instructions (If sedation given, give patient instructions): Levetiracetam (By mouth) Additional Instructions: Please return to the Emergency Department if symptoms worsen or any other concerns. Is patient prescribed a controlled substance at d/c from ED?: No Referrals: None,Stated [Primary Care Provider] - 1-2 days Time of Disposition: 00:00
[2020-06-06] MEDS ORDERED: levETIRAcetam 500 MG TAB PO STA
== END 2020-06-06 00:24 | disposition home or self-care (01) ==
LOC: EC 23:38
DX: Z76.0 Encounter for issue of repeat prescription (principal); F41.9 Anxiety disorder, unspecified; F32.9 Major depressive disorder, single episode, unspecified; F15.90 Other stimulant use, unspecified, uncomplicated
CPT/HCPCS: 99281

== ENCOUNTER 2020-10-23 23:27 | Emergency (ER) | payer BC, OTHER ==
--- NOTE | 2020-10-24 00:39 | ED ---
Recheck HPI - General Chief Complaint: Recheck/Abnormal Lab/Rx Stated Complaint: Needs seizure med refill Time Seen by Provider: 10/24/20 00:21 Source: patient Mode of arrival: ambulatory - History of Present Illness Initial Comments: 24-year-old male presenting to emergency Department with chief complaint of medication refill. Patient is requesting refill for Resighini, Keppra and Wellbutrin. He was also requesting a refill for Suboxone. States he recently came from [place] and does not have an established physician here. Denies any other complaints. - Related Data Previous Rx's Medication Instructions Recorded levETIRAcetam [Keppra] 1,000 mg PO Q12HR #60 tab 09/19/19 QUEtiapine [SEROquel] 200 mg PO DAILY #30 tablet 10/24/20 buPROPion HCL [Wellbutrin SR] 150 mg PO DAILY #30 tab 10/24/20 levETIRAcetam [Keppra] 1,000 mg PO Q12HR #60 tab 10/24/20 Allergies Allergy/AdvReac Type Severity Reaction Status Date / Time No Known Allergies Allergy Verified 10/23/20 23:32 Review of Systems ROS Statement: Those systems with pertinent positive or pertinent negative responses have been documented in the HPI. ROS Other: All systems not noted in ROS Statement are negative. Past Medical History Past Medical History: Seizure Disorder Additional Past Medical History / Comment(s): Hepatitis C. 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 former herion user History of Any Multi-Drug Resistant Organisms: None Reported Past Surgical History: Orthopedic Surgery, Tonsillectomy Additional Past Surgical History / Comment(s): Patient had right side jaw repair with a plate. Left arm repair due to a compound fracture in Past Anesthesia/Blood Transfusion Reactions: No Reported Reaction Past Psychological History: Anxiety, Depression Smoking Status: Vaper Past Alcohol Use History: Occasional Past Drug Use History: Heroin, Marijuana - Past Family History Father Family Medical History: No Reported History Mother Additional Family Medical History / Comment(s): Depression, Bipolar, ADD/ADHD Sister(s) Family Medical History: No Reported History Brother(s) Family Medical History: No Reported History General Exam Limitations: no limitations General appearance: alert, in no apparent distress Head exam: Present: atraumatic, normocephalic, normal inspection Eye exam: Present: normal appearance, PERRL, EOMI Pupils: Present: normal accommodation ENT exam: Present: normal exam, normal oropharynx, mucous membranes moist Neck exam: Present: normal inspection, full ROM. Absent: tenderness Respiratory exam: Present: normal lung sounds bilaterally. Absent: respiratory distress Cardiovascular Exam: Present: regular rate, normal rhythm, normal heart sounds. Absent: systolic murmur GI/Abdominal exam: Present: soft. Absent: distended, tenderness, guarding, rebound Extremities exam: Present: normal inspection, full ROM Back exam: Present: normal inspection, full ROM. Absent: tenderness Neurological exam: Present: alert, oriented X3 Psychiatric exam: Present: normal affect, normal mood Skin exam: Present: warm, dry, intact, normal color Course Vital Signs 10/23/20 23:28 Temperature 98.7 F Pulse Rate 76 Respiratory 19 Rate Blood Pressure 120/76 O2 Sat by Pulse 97 Oximetry Medical Decision Making - Medical Decision Making 24-year-old male presents emergency Department with a complaint of medication refill. Patient was given a 30 day supply for the medications he requested. No Suboxone refill. Given contact information for pain management in the area. We'll also received a dose of the alatna and Keppra in the ED. Case discussed physician. Disposition Clinical Impression: Encounter for medication refill Disposition: HOME SELF-CARE Condition: Stable Instructions (If sedation given, give patient instructions): Buprenorphine/Naloxone (Into the mouth) Additional Instructions: Please return to the Emergency Department if symptoms worsen or any other concerns. Prescriptions: levETIRAcetam [Keppra] 1,000 mg PO Q12HR #60 tab QUEtiapine [SEROquel] 200 mg PO DAILY #30 tablet buPROPion HCL [Wellbutrin SR] 150 mg PO DAILY #30 tab Is patient prescribed a controlled substance at d/c from ED?: No Referrals: None,Stated [Primary Care Provider] - 1-2 days Miller Hill MD [STAFF PHYSICIAN] - 1-2 days Time of Disposition: 00:39
[2020-10-24] MEDS ORDERED: levETIRAcetam 500 MG TAB PO ONE (00:50)
[2020-10-24] MEDS ORDERED: QUEtiapine 200 MG TAB PO ONE (00:50)
[2020-10-24 01:16] VITALS: BP 118/72; PULSE 74; RESP 16; TEMP 98.2
== END 2020-10-24 01:07 | disposition home or self-care (01) ==
LOC: EC 23:27
DX: Z76.0 Encounter for issue of repeat prescription (principal); G40.909 Epilepsy, unspecified, not intractable, without status epilepticus; F32.9 Major depressive disorder, single episode, unspecified; F41.9 Anxiety disorder, unspecified; F17.290 Nicotine dependence, other tobacco product, uncomplicated; F12.90 Cannabis use, unspecified, uncomplicated
CPT/HCPCS: 99281